=== PATIENT | female | born 1945 | race Caucasian/White ===

== ENCOUNTER 2016-11-10 07:15 | Day surgery (SDC) | payer OTHER ==
[2016-11-09 12:23] VITALS: BMI 38.0
[2016-11-10] MEDS ORDERED: PROPOFOL 20 ML ONE (09:08)
[2016-11-10] MEDS ORDERED: ceFAZolin SODIUM 1 GM VIAL ONE (09:09)
[2016-11-10] MEDS ORDERED: SODIUM CHLORIDE 0.9% P/F 10 ML VIAL IJ ONE (09:10)
[2016-11-10] MEDS ORDERED: LIDOCAINE HCL 2% 100 MG/5 ML DISP.SYRIN ONE (09:15)
[2016-11-10] MEDS ORDERED: GLYCOPYRROLATE 0.2 MG/1 ML VIAL ONE (09:35)
[2016-11-10] MEDS ORDERED: NEOSTIGMINE METHYLSULFATE 0.5 MG/ML - 10 ML MDV ONE (09:35)
--- NOTE | 2016-11-10 10:02 | HP ---
History & Physical Update - History History: No Change - Physical Physical: No Change - Assessment Assessment: No Change - Plan Plan: No Change
[2016-11-10] MEDS ORDERED: MIDAZOLAM HCL 2 MG/2 ML SINGLE DOSE VIAL ONE (10:32)
[2016-11-10] MEDS ORDERED: LIDOCAINE 1%/EPI 1:100000 (50 ML MULTI DOSE VIAL) ONE (10:34)
[2016-11-10] MEDS ORDERED: ceFAZolin SODIUM 1 GM VIAL IVPB ONE (10:42)
[2016-11-10] MEDS ORDERED: LIDOCAINE 2%/EPINEPHRINE 1:100000 (50 ML MD VIAL) PNB ONE ×2 (10:58)
[2016-11-10] MEDS ORDERED: oxyCODONE HCL 5 MG TABLET PO PRN (11:51)
[2016-11-10] MEDS ORDERED: ONDANSETRON 4 MG/2 ML VIAL IVPUSH PRN (11:51)
[2016-11-10 11:56] VITALS: TEMP 97.9
[2016-11-10] MEDS ORDERED: LACTATED RINGERS SOLUTION 1,000 ML IV SCH (12:00)
[2016-11-10 14:55] VITALS: BP 134/68; PULSE 86
--- NOTE | 2016-11-10 15:53 | OP ---
Operative Note - Note: Operative Date: 11/10/16 Pre-Operative Diagnosis: MULTIPLE BACK SEBACEOUS CYSTS Operation: EXCISION OF MULTIPLE BACK CYSTS Findings: 2 CM CYSTS OF THE BACK (2) Post-Operative Diagnosis: Same as Pre-op Surgeon: Honorio Turk Anesthesia: Local, MAC Operative Report Dictated: Yes
--- NOTE | 2016-11-11 10:03 | OP ---
DATE OF OPERATION: 11/10/2016 PROCEDURE: Excision of multiple back cysts (two). PREOPERATIVE DIAGNOSIS: Multiple back cysts (two). POSTOPERATIVE DIAGNOSIS: Multiple back cysts (two). SURGEON: Honorio Turk MD ANESTHESIA: Local with sedation. FINDINGS ON PROCEDURE: This is a 71-year-old female who presents with two slowly growing cystic lesions of the upper back, one on the right side and one on the left side at the area of the scapula. The right-sided cyst seems to be indurated and erythematous and was noted to be pruritic. The cyst on the left side was about 2 cm, not inflamed, with well-defined borders. So, patient was advised removal of the cyst and consent was obtained after discussing the risks, benefits, and alternatives of the procedure. DESCRIPTION OF PROCEDURE: Patient was brought to the operating room and placed in prone position. Intravenous sedation was given by anesthesia team. The operative sites were prepped and draped in the usual sterile fashion. The left upper back cyst was addressed first by making a 2-cm elliptical incision over the cyst incorporating the central sinus using scalpel blade No. 15. Further dissection using Metzenbaum scissors was done until the cyst together with ellipse of skin was completely excised. The wound was undermined about 0.5 cm on each side. The wound was closed with interrupted Vicryl 3-0 suture for the dermis and continuous Biosyn 4-0 suture for the subcuticular layer. The wound closure was reinforced with Steri-Strips and covered with sterile dressing. The right cyst was excised in the same manner by making 2.5-cm elliptical incision over the indurated cyst. The cyst as also removed together with ellipse of skin, and the wound was closed with interrupted Vicryl 3-0 suture for the dermis and continuous Biosyn 4-0 suture for the subcuticular layer. The wound closure was reinforced with Steri-Strips and also covered with pressure dressing. The patient was placed in supine position and transferred to the post-anesthesia care unit in satisfactory condition. ESTIMATED BLOOD LOSS: About 2 mL. WOUND CLASS: Clean. The patient received 1 g of Ancef prior to the start of the procedure. Frantz [id number]
--- NOTE | 2016-11-11 14:57 | PATH ---
Surgical Pathology Report Patient Name: EVAN MORALES [facility]. Rec. #: [id number] /Age/Gender: 1945 (Age: 71) / F Account: [id number] Location: [facility] Taken: 11/10/2016 Received: 11/10/2016 Reported: 11/11/2016 Physicians: Honorio Turk M.D. Specimen(s) Received SEBACEOUS CYST x2 Clinical History Back cyst x2 Final Diagnosis SEBACEOUS CYST x2, BACK, EXCISION: EPIDERMAL INCLUSION CYSTS x2. Electronically Signed Ron Martinez M.D. Gross Description Received in formalin labeled "sebaceous cysts" is a 1.4 x 1.1 x 0.7 cm portion of soft tissue which is surfaced by a 1.4 x 0.3 cm casarez, elliptical, unremarkable portion of skin. Sectioning reveals an intact cystic structure. Also received within the same container is a 1.0 x 0.5 x 0.4 cm casarez, disrupted cyst. [employer] sections are submitted in 2 cassettes as follows: 1-intact cyst; 2-disrupted cyst. /11/10/2016 [facility]
== END 2016-11-10 13:15 | disposition home or self-care (01) ==
LOC: JASU-SURG 07:15
PROVIDERS: ATTEND Surgery
PROC: 0HB6XZZ Excision of Back Skin, External Approach (ICD-10-PCS; principal; 2016-11-10 10:00)
DX: L72.3 Sebaceous cyst (principal)
CPT/HCPCS: 88304-TC; 94760

== ENCOUNTER 2017-12-20 11:58 | Inpatient (IN) | payer OTHER ==
--- NOTE | 2017-12-20 13:27 | PDOC ---
History of Present Illness - General Chief Complaint: Shortness of Breath Stated Complaint: SOB, CHEST CONGESTION Time Seen by Provider: 12/20/17 13:27 History Source: Patient - History of Present Illness Initial Comments: 12/20/17 14:07 72 year old female with PMH HTN, diabetes, tacyhcardia, chronic arthritis, anemia, 20-25 pack year smoking history, family history of early NE presents to ED today for 3 days of SOB associated with diaphoresis, nausea, vomiting, diarrhea, headache, lightheadedness, cough. Pt states she had one episode of chest pain yesterday 12/19/17 for 1-2 seconds, located to her left chest, described as "uncomfortable", non-radiating, self-resolving. Her lisonpril was recently decreased from 20 mg to 10 mg for hypotension. Pt is on Remicade infusions for chronic arthritis, last infusion x8 weeks ago. Pt states her father at 37 of an NE. Her two brothers also had MIs, one at 65 and the other in his fifties. Past History - Past Medical History Allergies/Adverse Reactions: Allergies Allergy/AdvReac Type Severity Reaction Status Date / Time codeine AdvReac Verified 12/20/17 12:09 Home Medications: Ambulatory Orders Aspirin [ASA -] 81 mg PO DAILY 05/18/16 Gabapentin [Neurontin -] 300 mg PO BID 05/18/16 Lisinopril [Prinivil] 20 mg PO DAILY 05/18/16 Metoprolol Succinate [Toprol Xl -] 50 mg PO HS 05/18/16 Metoprolol Succinate [Toprol Xl -] 100 mg PO AM 05/18/16 Nortriptyline HCl [Pamelor -] 20 mg PO HS 05/18/16 Simvastatin [Zocor -] 20 mg PO HS 05/18/16 Medical Marijuana [Medical Marijuana Oil] 1 inh IH BID 09/07/16 Cholecalciferol (Vitamin D3) [Vitamin D-400] 400 unit PO DAILY 11/09/16 Cyanocobalamin [Vitamin B12 -] 1,000 mcg PO DAILY 11/09/16 Methotrexate [Mexate -] 7.5 mg PO Q7D 11/09/16 Multivitamins [Tab-A-Vit -] 1 tab PO DAILY 11/09/16 [place]-3 Fatty Acids [Fish Oil] 3,400 mg PO DAILY 11/09/16 Sennosides/Docusate Sodium [Stool Softener-Laxative Tablet] 1 each PO DAILY 10/21 Acetaminophen [Tylenol -] 500 mg PO Q4H PRN #60 tablet 11/10/16 Infliximab [Remicade 100MG Vial] 100 mg IV ASDIR 12/20/17 Anemia: Yes Asthma: No Cancer: No Cardiac Disorders: No CVA: No COPD: No CHF: No Dementia: No Diabetes: Yes (on meds, with neuropathy) GI Disorders: No Disorders: No HTN: Yes Hypercholesterolemia: No Liver Disease: No Seizures: No Thyroid Disease: No Other medical history: RA - Surgical History Appendectomy: Yes Orthopedic Surgery: Yes (total knee replacement 2007; ) - Suicide/Smoking/Psychosocial Hx Smoking History: Former smoker Have you smoked in the past 12 months: Yes If you are a former smoker, when did you quit?: 30 years ago Information on smoking cessation initiated: No Hx Alcohol Use: Yes Drug/Substance Use Hx: ([facility]) Substance Use Type: Marijuana Hx Substance Use Treatment: No (MEDICAL MARIJUANA FOR FEET PAIN) Review of Systems - Review of Systems Able to Perform ROS?: Yes Comments:: 12/20/17 14:09 General: admits to chills, sweats, fever. denies generalized weakness. HEENT: denies sore throat, rhinorrhea, ear pain. Heart: admits to chest pain, lightheadedness. denies palpitations, syncope, lower extremity swelling. Respiratory: admits to shortness of breath, cough. denies sputum production, hematemesis. Abdomen: admits to nausea, vomiting, diarrhea. denies abdominal pain, constipation, blood in stool. : denies for dysuria, urinary frequency, hematuria. Musculoskeletal: admits to chronic joint pain. denies muscle pain, joint swelling. Neurological: admits to headache. denies dizziness, numbness, tingling. Skin: denies for rash, laceration, abrasion. *Physical Exam - Vital Signs Last Vital Signs Temp Pulse Resp BP Pulse Ox 99.5 F 110 H 20 105/75 94 L 12/20/17 12:05 12/20/17 12:05 12/20/17 12:05 12/20/17 12:05 12/20/17 12:05 - Physical Exam Comments: 12/20/17 14:51 General: diaphoretic. awake, alert and oriented X3. HEENT: head is normocephalic, atraumatic. EOMI. PERRLA. Neck: supple without lymphadenopathy Heart: tachycardic. regular rhythm. no murmurs, rubs or gallops. Lungs: clear to auscultation bilaterally. no crackles, rhonchi or wheezing. no stridor. Abdomen: soft, nontender. normal bowel sounds. no rebound, guarding, masses. Extremities: Peripheral pulses intact. No leg edema. Neurological: Alert. Oriented x3. CN 2-12 intact. 5/5 strength all extremities. Sensation intact all extremities. Heart Score/ECG Review - ECG Impressions Comment:: 12/20/17 14:13 Rate 104, normal rhythm, normal axis, no acute ST changes. ED Treatment Course - LABORATORY CBC & Chemistry Diagram: 12/20/17 14:27 12/20/17 14:27 Medical Decision Making - Medical Decision Making 12/20/17 15:13 Pt reassessed, states she had SOB while walking to the bathroom. She states after resting and recieving oxygen she is feeling better. 12/20/17 15:[address] Shaw, who will accept the patient. Dr. Shaw has requested that I order BNP, D-dimer, V/Q scan. Dr. Shaw has requested I call cardiology and pulmonoloy as consult. 12/20/17 16:[address] Martínez, who advises ordering LE venous ultrasound, Heparin, d- dimer, V/Q scan. 12/20/17 16:[address] Shaw, updated her on Dr. Martínez's requested orders. 12/20/17 16:18 Spoke with the patient about the decision to admit her. She agrees with the plan of care. 12/20/17 16:[address] Ferreira, who will accept the consult for the patient. *DC/Admit/Observation/Transfer Diagnosis at time of Disposition: Shortness of breath, Acute kidney failure - Discharge Dispostion Condition at time of disposition: Guarded Decision to Admit order: Yes - Referrals Referrals: Lisa Edgar MD [Primary Care Provider] - - Patient Instructions - Post Discharge Activity
--- NOTE | 2017-12-20 13:56 | PDOC ---
Attending Attestation - HPI HPI: 12/20/17 14:21 The patient is a 72 year old female with a past medical history of HTN, diabetes , tacyhcardia, chronic arthritis who presents to ED today for 3 days of SOB with associated with diaphoresis, nausea, vomiting, diarrhea, headache, lightheadedness, and cough. Pt states she had one episode of chest pain yesterday which lasted 1-2 seconds, located to her left chest, which resolved on its own. She reprots her lisonpril was recently decreased from 20 mg to 10 mg for hypotension. She reports her last echo was in November and normal. She states she had an endoscopy [address] Vela. Allergies: Codeine PCP: Dr. Lisa Quigley Cards: Dr. Nj - Medical Decision Making 12/20/17 14:22 Documentation prepared by Anika Rodriguez, acting as medical billing service for Martha Davis MD <Anika Rodriguez - Last Filed: 12/20/17 15:44> - Resident Resident Name: Shweta Enriquez - ED Attending Attestation I have performed the following: I have examined & evaluated the patient, The case was reviewed & discussed with the resident, I agree w/resident's findings & plan, Exceptions are as noted - Physicial Exam PE: 12/22/17 08:24 General: diaphoretic. awake, alert and oriented X3. HEENT: head is normocephalic, atraumatic. EOMI. PERRLA. Neck: supple without lymphadenopathy Heart: tachycardic. regular rhythm. no murmurs, rubs or gallops. Lungs: clear to auscultation bilaterally. no crackles, rhonchi or wheezing. no stridor. Abdomen: soft, nontender. normal bowel sounds. no rebound, guarding, masses. Extremities: Peripheral pulses intact. No leg edema. Neurological: Alert. Oriented x3. CN 2-12 intact. 5/5 strength all extremities. Sensation intact all extremities. - Medical Decision Making Laboratory Tests 12/20/17 12/20/17 12/20/17 14:27 14:27 14:37 WBC 5.4 Hgb 10.6 L Hct 31.6 L D Plt Count 299 D D-Dimer BUN 37 H Creatinine 2.1 H Creatine Kinase 61 Troponin I < 0.02 B-Natriuretic Peptide Ur Leukocyte Esterase 2+ H Urine WBC (Auto) 6 Urine RBC (Auto) None Stool Occult Blood 12/20/17 12/20/17 12/20/17 15:53 15:53 16:13 WBC Hgb Hct Plt Count D-Dimer 263 BUN Creatinine Creatine Kinase Troponin I B-Natriuretic Peptide 345.97 H Ur Leukocyte Esterase Urine WBC (Auto) Urine RBC (Auto) Stool Occult Blood Negative PT remains dyspneic on exertion CXR nml D dimer negative Heparin initially ordered but discontinued Admitted to Dr Shaw <Martha Davis - Last Filed: 12/22/17 08:26>
[2017-12-20] MEDS ORDERED: ASPIRIN 81 MG CHEWABLE TABLETS PO ONE (14:06)
[2017-12-20] MEDS ORDERED: ASPIRIN 325 MG TABLET ONE (14:13)
[2017-12-20 14:39] LABS: HEMATOCRIT 31.6 % (32.4-45.2); HEMOGLOBIN 10.6 GM/dL (10.7-15.3); MCH 33.4 pg (25.7-33.7); MCHC 33.5 g/dl (32.0-36.0); MEAN CELL VOLUME 99.6 fl (80-96); MEAN PLT VOLUME 8.6 fl (7.5-11.1); PLATELET COUNT 299 K/MM3 (134-434); RBC 3.18 M/mm3 (3.60-5.2); WHITE BLOOD COUNT 5.4 K/mm3 (4.0-10.0)
[2017-12-20 15:02] LABS: URINE APPEARANCE SLCLOUDY; URINE BILIRUBIN NEGATIVE (<2.0 mg/dL); URINE COLOR YELLOW; URINE GLUCOSE (UA) NEGATIVE (NEGATIVE); URINE KETONE NEGATIVE (NEGATIVE); URINE NITRITE NEGATIVE (NEGATIVE); URINE PROTEIN NEGATIVE (NEGATIVE); URINE UROBILINOGEN NEGATIVE mg/dL (0.2-1.0)
[2017-12-20 15:03] LABS: ALBUMIN 3.1 g/dl (3.4-5.0); ANION GAP 10 (8-16); BILIRUBIN,TOTAL 0.5 mg/dL (0.2-1.0); BLOOD UREA NITROGEN 37 mg/dL (7-18); CALCIUM 10.7 mg/dL (8.5-10.1); CHLORIDE 97 mmol/L (98-107); CO2 28 mmol/L (21-32); CREATININE 2.1 mg/dL (0.55-1.02); GLUCOSE,RANDOM 114 mg/dL (74-106); POTASSIUM 4.4 mmol/L (3.5-5.1); SGOT/AST 34 U/L (15-37); SGPT/ALT 39 U/L (12-78); SODIUM 135 mmol/L (136-145)
[2017-12-20 15:06] LABS: ALK PHOS 54 U/L (45-117)
[2017-12-20 15:07] LABS: URINE LEUK ESTERASE 2+ (NEGATIVE)
[2017-12-20 15:14] LABS: EPI CELLS RARE /HPF (FEW); URINE HYALINE CAST 90 /lpf; URINE MUCUS RARE; YEAST FEW
[2017-12-20] MEDS ORDERED: HEPARIN - 25,000 UNIT in SODIUM CHLORIDE 495 ML IV SCH (16:15)
[2017-12-20 16:20] LABS: ARTERIAL BLD GAS O2 SATURATION 98.9 % (90-98.9); ARTERIAL BLOOD GAS BASE EXCESS 2.8 meq/l (-2-2); ARTERIAL BLOOD GAS PCO2 32.9 mmHg (35-45)
[2017-12-20 16:21] LABS: ALLENS TEST POSITIVE
[2017-12-20] MEDS ORDERED: HEPARIN INFUSION - 25,000 UNITS/500 ML INFUS.BAG IVPB ONE (16:26)
[2017-12-20 16:39] LABS: INR 1.16 (0.82-1.09); PROTHROMBIN TIME (PATIENT) 13.1 SEC (9.7-13.0)
--- NOTE | 2017-12-20 17:25 | CON.CARD ---
Consult Consult Specialty:: Cardiology - History of Present Illness Chief Complaint: sob History of Present Illness: The patient is a 72 year old female with a past medical history of HTN, diabetes , tacyhcardia, chronic arthritis who presents to ED today for 3 days of SOB with associated with diaphoresis, nausea, vomiting, diarrhea, headache, lightheadedness, and cough. Pt states she had one episode of chest pain yesterday which lasted 1-2 seconds, located to her left chest, which resolved on its own. She reprots her lisonpril was recently decreased from 20 mg to 10 mg for hypotension. She reports her last echo was in November and normal. She states she had an endoscopy [address] Vela. Allergies: Codeine PCP: Dr. Lisa Quigley Cards: Dr. Nj - History Source History Provided By: Patient, Medical Record - Past Medical History Cardio/Vascular: Yes: HTN, Hyperlipdemia - Alcohol/Substance Use Hx Alcohol Use: Yes - Smoking History Smoking history: Former smoker Have you smoked in the past 12 months: Yes If you are a former smoker, when did you quit?: 30 years ago Home Medications - Allergies Allergies/Adverse Reactions: Allergies Allergy/AdvReac Type Severity Reaction Status Date / Time codeine AdvReac Verified 12/20/17 12:09 - Home Medications Home Medications: Ambulatory Orders Aspirin [ASA -] 81 mg PO DAILY 05/18/16 Gabapentin [Neurontin -] 300 mg PO BID 05/18/16 Lisinopril [Prinivil] 20 mg PO DAILY 05/18/16 Metoprolol Succinate [Toprol Xl -] 50 mg PO HS 05/18/16 Metoprolol Succinate [Toprol Xl -] 100 mg PO AM 05/18/16 Nortriptyline HCl [Pamelor -] 20 mg PO HS 05/18/16 Simvastatin [Zocor -] 20 mg PO HS 05/18/16 Medical Marijuana [Medical Marijuana Oil] 1 inh IH BID 09/07/16 Cholecalciferol (Vitamin D3) [Vitamin D-400] 400 unit PO DAILY 11/09/16 Cyanocobalamin [Vitamin B12 -] 1,000 mcg PO DAILY 11/09/16 Methotrexate [Mexate -] 7.5 mg PO Q7D 11/09/16 Multivitamins [Tab-A-Vit -] 1 tab PO DAILY 11/09/16 [place]-3 Fatty Acids [Fish Oil] 3,400 mg PO DAILY 11/09/16 Sennosides/Docusate Sodium [Stool Softener-Laxative Tablet] 1 each PO DAILY 10/21 Acetaminophen [Tylenol -] 500 mg PO Q4H PRN #60 tablet 11/10/16 Infliximab [Remicade 100MG Vial] 100 mg IV ASDIR 12/20/17 Family Disease History - Family Disease History Family Disease History: Heart Disease: Father (), Mother () Review of Systems - Review of Systems Constitutional: reports: No Symptoms Eyes: reports: No Symptoms HENT: reports: No Symptoms Neck: reports: No Symptoms Cardiovascular: reports: No Symptoms Respiratory: reports: SOB, SOB on Exertion Gastrointestinal: reports: No Symptoms Genitourinary: reports: No Symptoms Breasts: reports: No Symptoms Reported Musculoskeletal: reports: No Symptoms Integumentary: reports: No Symptoms Neurological: reports: No Symptoms Endocrine: reports: No Symptoms Hematology/Lymphatic: reports: No Symptoms Psychiatric: reports: No Symptoms Vital Signs: Vital Signs Temperature 98.3 F 12/20/17 16:35 Pulse Rate 106 H 12/20/17 16:35 Respiratory Rate 16 12/20/17 16:35 Blood Pressure 107/62 12/20/17 16:35 O2 Sat by Pulse Oximetry (%) 96 12/20/17 16:35 Constitutional: Yes: Well Nourished, No Distress, Calm Eyes: Yes: WNL, Conjunctiva Clear, EOM Intact HENT: Yes: WNL, Atraumatic, Normocephalic Neck: Yes: WNL, Supple, Trachea Midline Respiratory: Yes: Rhonchi Gastrointestinal: Yes: WNL, Normal Bowel Sounds Renal/: Yes: WNL Cardiovascular: Yes: WNL, Regular Rate and Rhythm Musculoskeletal: Yes: WNL Extremities: Yes: WNL Integumentary: Yes: WNL Neurological: Yes: WNL, Alert, Oriented ...Motor Strength: WNL Psychiatric: Yes: WNL, Alert, Oriented - Other Data Labs, Other Data: CBC, BMP 12/20/17 14:27 12/20/17 14:27 INR, PTT INR 1.16 (0.82-1.09) H 12/20/17 16:05 Troponin, BNP 12/20/17 12/20/17 14:27 15:53 Troponin I < 0.02 B-Natriuretic Peptide 345.97 H Troponin, BNP 12/20/17 12/20/17 14:27 15:53 Troponin I < 0.02 B-Natriuretic Peptide 345.97 H Imaging - Results Chest X-ray: Image Reviewed (wnl) EKG: Image Reviewed (jim vincent) Problem List - Problems (1) Acute kidney failure Code(s): N17.9 - ACUTE KIDNEY FAILURE, UNSPECIFIED (2) Shortness of breath Code(s): R06.02 - SHORTNESS OF BREATH (3) Sebaceous cyst Code(s): L72.3 - SEBACEOUS CYST (4) Carpal tunnel syndrome Code(s): G56.00 - CARPAL TUNNEL SYNDROME, UNSPECIFIED UPPER LIMB (5) Chronic pain Code(s): G89.29 - OTHER CHRONIC PAIN (6) Chronic renal insufficiency, stage III (moderate) Code(s): N18.3 - CHRONIC KIDNEY DISEASE, STAGE 3 (MODERATE) (7) Diabetes mellitus treated with oral medication Code(s): E11.9 - TYPE 2 DIABETES MELLITUS WITHOUT COMPLICATIONS (8) Diabetic neuropathy Code(s): E11.40 - TYPE 2 DIABETES MELLITUS WITH DIABETIC NEUROPATHY, UNSP (9) Dry eyes Code(s): H04.123 - DRY EYE SYNDROME OF BILATERAL LACRIMAL GLANDS (10) Glaucoma Code(s): H40.9 - UNSPECIFIED GLAUCOMA (11) Osteoarthritis Code(s): M19.90 - UNSPECIFIED OSTEOARTHRITIS, UNSPECIFIED SITE (12) PVD (peripheral vascular disease) with claudication Code(s): I73.9 - PERIPHERAL VASCULAR DISEASE, UNSPECIFIED (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
[2017-12-20 18:53] VITALS: BMI 33.4
[2017-12-20] MEDS ORDERED: ACETAMINOPHEN 325 MG TABLET (FP) PO PRN (19:16)
--- NOTE | 2017-12-20 19:19 | HP ---
Admitting History and Physical - Primary Care Physician PCP: Lorenzo Shaw - Admission History of Present Illness: 72 year old female with a past medical history of HTN, diabetes, tacyhcardia, chronic arthritis who presents to ED today for 3 days of SOB with associated with diaphoresis, nausea, vomiting, diarrhea, headache, lightheadedness, and cough. Pt states she had one episode of chest pain yesterday which lasted 1-2 seconds, located to her left chest, which resolved on its own. She reprots her lisonpril was recently decreased from 20 mg to 10 mg for hypotension. She reports her last echo was in November and normal. She states she had an endoscopy [address] Vela. - Past Medical History Cardiovascular: Yes: HTN Pulmonary: Yes: COPD ...: No Endocrine: Yes: Diabetes Mellitus - Advance Directives Advance Directives: Yes: Health Care Proxy - Smoking History Smoking history: Former smoker Have you smoked in the past 12 months: Yes If you are a former smoker, when did you quit?: 30 years ago - Alcohol/Substance Use Hx Alcohol Use: Yes Home Medications - Allergies Allergies/Adverse Reactions: Allergies Allergy/AdvReac Type Severity Reaction Status Date / Time codeine AdvReac Verified 12/20/17 12:09 - Home Medications Home Medications: Ambulatory Orders Aspirin [ASA -] 81 mg PO DAILY 05/18/16 Gabapentin [Neurontin -] 300 mg PO BID 05/18/16 Lisinopril [Prinivil] 20 mg PO DAILY 05/18/16 Metoprolol Succinate [Toprol XL -] 50 mg PO HS 05/18/16 Metoprolol Succinate [Toprol XL -] 100 mg PO AM 05/18/16 Nortriptyline HCl [Pamelor -] 20 mg PO HS 05/18/16 Simvastatin [Zocor -] 20 mg PO HS 05/18/16 Medical Marijuana [Medical Marijuana Oil] 1 inh IH BID 09/07/16 Cholecalciferol (Vitamin D3) [Vitamin D-400] 400 unit PO DAILY 11/09/16 Cyanocobalamin [Vitamin B12 -] 1,000 mcg PO DAILY 11/09/16 Methotrexate [Mexate -] 7.5 mg PO Q7D 11/09/16 Multivitamins [Multivit ([facility] Formulary)] 1 tab PO DAILY 11/09/16 [place]-3 Fatty Acids [Fish Oil] 3,400 mg PO DAILY 11/09/16 Sennosides/Docusate Sodium [Stool Softener-Laxative Tablet] 1 each PO DAILY 10/21 Acetaminophen [Tylenol .Extra-Strength -] 500 mg PO Q4H PRN #60 tablet 11/10/16 Infliximab [Remicade Infusion -] 100 mg IV ASDIR 12/20/17 predniSONE [Deltasone -] 40 mg PO DAILY #30 tablet 12/26/17 Family Disease History - Family Disease History Family Disease History: Heart Disease: Father (), Mother () Review of Systems - Review of Systems Cardiovascular: reports: Chest Pain Respiratory: reports: SOB Physical Examination Vital Signs: Vital Signs Temperature 98.3 F 12/20/17 16:35 Pulse Rate 106 H 12/20/17 16:35 Respiratory Rate 16 12/20/17 16:35 Blood Pressure 107/62 12/20/17 16:35 O2 Sat by Pulse Oximetry (%) 96 12/20/17 16:35 Constitutional: Yes: No Distress HENT: Yes: Atraumatic Neck: Yes: Supple Cardiovascular: Yes: Regular Rate and Rhythm Respiratory: Yes: Rhonchi Gastrointestinal: Yes: Normal Bowel Sounds Extremities: Yes: WNL Neurological: Yes: Alert, Oriented Labs: CBC, BMP 12/20/17 14:27 12/20/17 14:27 Problem List - Problems (1) HTN (hypertension) Assessment/Plan: on meds monitor Code(s): I10 - ESSENTIAL (PRIMARY) HYPERTENSION (2) Acute kidney failure Assessment/Plan: on hydration Code(s): N17.9 - ACUTE KIDNEY FAILURE, UNSPECIFIED (3) Shortness of breath Assessment/Plan: on meds stable steroids duo nebs pulmonary on board Code(s): R06.02 - SHORTNESS OF BREATH (4) Diabetes mellitus treated with oral medication Code(s): E11.9 - TYPE 2 DIABETES MELLITUS WITHOUT COMPLICATIONS (5) Diabetic neuropathy Code(s): E11.40 - TYPE 2 DIABETES MELLITUS WITH DIABETIC NEUROPATHY, UNSP (6) Rheumatoid arteritis Code(s): I00 - RHEUMATIC FEVER WITHOUT HEART INVOLVEMENT Assessment/Plan Laboratory Tests 12/20/17 12/20/17 12/20/17 14:21 14:27 14:27 WBC 5.4 RBC 3.18 L Hgb 10.6 L Hct 31.6 L D MCV 99.6 H MCH 33.4 D MCHC 33.5 RDW 16.0 H Plt Count 299 D MPV 8.6 PT with INR INR PTT (Actin FS) D-Dimer Anticoagulation Therapy Puncture Site ABG pH ABG pCO2 at Pt Temp ABG pO2 at Pt Temp ABG HCO3 ABG O2 Sat (Measured) ABG O2 Content ABG Base Excess Angelo Test O2 Delivery Device Oxygen Flow Rate Vent Mode Vent Rate Mechanical Rate Pressure Support Vent Sodium 135 L Potassium 4.4 Chloride 97 L Carbon Dioxide 28 Anion Gap 10 BUN 37 H Creatinine 2.1 H Creat Clearance w eGFR 23.02 Random Glucose 114 H Lactic Acid 1.5 Calcium 10.7 H Total Bilirubin 0.5 AST 34 ALT 39 Alkaline Phosphatase 54 Creatine Kinase 61 Troponin I < 0.02 B-Natriuretic Peptide Total Protein 7.0 Albumin 3.1 L Urine Color Urine Appearance Urine pH Ur Specific [place] Urine Protein Urine Glucose (UA) Urine Ketones Urine Blood Urine Nitrite Urine Bilirubin Urine Urobilinogen Ur Leukocyte Esterase Urine WBC (Auto) Urine RBC (Auto) Ur Epithelial Cells Hyaline Casts Urine Mucus Urine Yeast Stool Occult Blood 12/20/17 12/20/17 12/20/17 14:37 15:53 15:53 WBC RBC Hgb Hct MCV MCH MCHC RDW Plt Count MPV PT with INR INR PTT (Actin FS) D-Dimer 263 Anticoagulation Therapy Puncture Site ABG pH ABG pCO2 at Pt Temp ABG pO2 at Pt Temp ABG HCO3 ABG O2 Sat (Measured) ABG O2 Content ABG Base Excess Angelo Test O2 Delivery Device Oxygen Flow Rate Vent Mode Vent Rate Mechanical Rate Pressure Support Vent Sodium Potassium Chloride Carbon Dioxide Anion Gap BUN Creatinine Creat Clearance w eGFR Random Glucose Lactic Acid Calcium Total Bilirubin AST ALT Alkaline Phosphatase Creatine Kinase Troponin I B-Natriuretic Peptide 345.97 H Total Protein Albumin Urine Color Yellow Urine Appearance Slcloudy Urine pH 5.0 Ur Specific [place] 1.012 Urine Protein Negative Urine Glucose (UA) Negative Urine Ketones Negative Urine Blood Negative Urine Nitrite Negative Urine Bilirubin Negative Urine Urobilinogen Negative Ur Leukocyte Esterase 2+ H Urine WBC (Auto) 6 Urine RBC (Auto) None Ur Epithelial Cells Rare Hyaline Casts 90 Urine Mucus Rare Urine Yeast Few Stool Occult Blood 12/20/17 12/20/17 12/20/17 16:05 16:05 16:05 WBC RBC Hgb Hct MCV MCH MCHC RDW Plt Count MPV PT with INR 13.10 H INR 1.16 H PTT (Actin FS) 29.9 D-Dimer Anticoagulation Therapy No Result Required. Puncture Site Left radial ABG pH 7.50 H ABG pCO2 at Pt Temp 32.9 L ABG pO2 at Pt Temp 135.0 H ABG HCO3 25.4 ABG O2 Sat (Measured) 98.9 ABG O2 Content 13.6 L ABG Base Excess 2.8 H Angelo Test Positive O2 Delivery Device No Result Required. Oxygen Flow Rate No Result Required. Vent Mode No Result Required. Vent Rate No Result Required. Mechanical Rate No Result Required. Pressure Support Vent No Result Required. Sodium Potassium Chloride Carbon Dioxide Anion Gap BUN Creatinine Creat Clearance w eGFR Random Glucose Lactic Acid Calcium Total Bilirubin AST ALT Alkaline Phosphatase Creatine Kinase Troponin I B-Natriuretic Peptide Total Protein Albumin Urine Color Urine Appearance Urine pH Ur Specific [place] Urine Protein Urine Glucose (UA) Urine Ketones Urine Blood Urine Nitrite Urine Bilirubin Urine Urobilinogen Ur Leukocyte Esterase Urine WBC (Auto) Urine RBC (Auto) Ur Epithelial Cells Hyaline Casts Urine Mucus Urine Yeast Stool Occult Blood 12/20/17 16:13 WBC RBC Hgb Hct MCV MCH MCHC RDW Plt Count MPV PT with INR INR PTT (Actin FS) D-Dimer Anticoagulation Therapy Puncture Site ABG pH ABG pCO2 at Pt Temp ABG pO2 at Pt Temp ABG HCO3 ABG O2 Sat (Measured) ABG O2 Content ABG Base Excess Angelo Test O2 Delivery Device Oxygen Flow Rate Vent Mode Vent Rate Mechanical Rate Pressure Support Vent Sodium Potassium Chloride Carbon Dioxide Anion Gap BUN Creatinine Creat Clearance w eGFR Random Glucose Lactic Acid Calcium Total Bilirubin AST ALT Alkaline Phosphatase Creatine Kinase Troponin I B-Natriuretic Peptide Total Protein Albumin Urine Color Urine Appearance Urine pH Ur Specific [place] Urine Protein Urine Glucose (UA) Urine Ketones Urine Blood Urine Nitrite Urine Bilirubin Urine Urobilinogen Ur Leukocyte Esterase Urine WBC (Auto) Urine RBC (Auto) Ur Epithelial Cells Hyaline Casts Urine Mucus Urine Yeast Stool Occult Blood Negative Active Medications Generic Name Dose Route Start Last Admin Trade Name Freq PRN Reason Stop Dose Admin Acetaminophen 650 mg 12/20/17 19:16 Tylenol - PO Q6H PRN FEVER Albuterol/Ipratropium 1 amp 12/20/17 19:17 Duoneb - NEB Q4H PRN SHORTNESS OF BREATH Aspirin 81 mg 12/21/17 10:00 Asa - PO DAILY MARLINE Gabapentin 300 mg 12/20/17 22:00 Neurontin - PO BID [facility]LINE Sodium Chloride 1,000 mls @ 75 mls/hr 12/20/17 19:30 Normal Saline - IV ASDIR [facility]LINE Lisinopril 20 mg 12/21/17 10:00 Prinivil PO DAILY [facility] Methotrexate 7.5 mg 12/20/17 19:15 Mexate - PO Q7D [facility]LINE Metoprolol Succinate 50 mg 12/20/17 22:00 Toprol Xl - PO HS MARLINE Metoprolol Succinate 100 mg 12/21/17 07:00 Toprol Xl - PO AM MARLINE Non-Formulary Medication 20 mg 12/20/17 22:00 Simvastatin PO HS [facility]LINE Nortriptyline HCl 20 mg 12/20/17 22:00 Pamelor - PO HS MARLINE Senna/Docusate Sodium 1 tablet 12/21/17 10:00 Pericolace - PO DAILY [facility]
[2017-12-20] MEDS: SODIUM CHLORIDE 1,000 ML IV SCH (20:02)
[2017-12-20] MEDS: NORTRIPTYLINE HCL 10 MG CAPSULE PO SCH (21:43)
[2017-12-20] MEDS: GABAPENTIN 300 MG CAPSULE (FP) PO SCH (21:44)
[2017-12-20] MEDS: ATORVASTATIN CA 10 MG TABLET (FP) PO SCH (21:45)
[2017-12-21 07:26] LABS: BASO % 0.9 % (0-2.0); EOS % 2.1 % (0-4.5); HEMATOCRIT 26.4 % (32.4-45.2); LYMPH % 18.3 % (8-40); MCH 34.1 pg (25.7-33.7); MCHC 34.2 g/dl (32.0-36.0); MEAN CELL VOLUME 99.8 fl (80-96); MEAN PLT VOLUME 8.6 fl (7.5-11.1); MONO % 7.4 % (3.8-10.2); NEUT % 71.3 % (42.8-82.8); PLATELET COUNT 213 K/MM3 (134-434); RBC 2.64 M/mm3 (3.60-5.2); RDW 15.5 % (11.6-15.6)
[2017-12-21 07:33] LABS: ALBUMIN 2.7 g/dl (3.4-5.0); ANION GAP 7 (8-16); BILIRUBIN,TOTAL 0.4 mg/dL (0.2-1.0); BLOOD UREA NITROGEN 33 mg/dL (7-18); CHLORIDE 100 mmol/L (98-107); CO2 30 mmol/L (21-32); CREATININE 1.7 mg/dL (0.55-1.02); GLUCOSE,RANDOM 105 mg/dL (74-106); POTASSIUM 4.2 mmol/L (3.5-5.1); SGOT/AST 23 U/L (15-37); SGPT/ALT 31 U/L (12-78); SODIUM 137 mmol/L (136-145); TOT PROT 5.8 g/dl (6.4-8.2)
[2017-12-21 07:34] LABS: ALK PHOS 40 U/L (45-117)
[2017-12-21 09:12] LABS: MACROCYTOSIS 1+; PLATELET ESTIMATE NORMAL
[2017-12-21] MEDS: ASPIRIN 81 MG CHEWABLE TABLETS PO SCH (09:56)
[2017-12-21] MEDS: SENNOSIDES/DOCUSATE COMBO (SENNA PLUS) TABLET (UD) PO SCH (09:56)
[2017-12-21] MEDS: GABAPENTIN 300 MG CAPSULE (FP) PO SCH ×2 (09:56→21:43)
[2017-12-21] MEDS ORDERED: LISINOPRIL 20 MG TABLET (FP) PO SCH (10:00)
--- NOTE | 2017-12-21 11:26 | EKG ---
Test Reason : Blood Pressure : / mmHG Vent. Rate : 104 BPM Atrial Rate : 104 BPM P-R Int : 150 ms QRS Dur : 064 ms QT Int : 328 ms P-R-T Axes : 048 005 050 degrees QTc Int : 431 ms SINUS TACHYCARDIA OTHERWISE NORMAL ECG Confirmed by MD ANTWAN, LAURA ([id number]) on 12/21/2017 11:26:14 AM Referred By: Confirmed By:LAURA MONCADA MD
--- NOTE | 2017-12-21 11:49 | PN ---
Progress Note (short form) - Note Progress Note: PULMONARY CONSULTATION DICTATED 12/21/16 IMP ACUTE HYPOXEMIC RESPIRATORY FAILURE DYSPNEA ? ETIOLOGY ? MEDS REMICADE, ? ASTHMA EXACERBATION,R/O CARDIAC,?PE ALTHOUGH UNLIKELY IN VIEW OF NORMAL D-DIMER AND NORMAL DUPLEX LOWER EXTREMITIES ACUTE KIDNEY INJURY HTN RA H/O ASTHMA PLAN IV STEROIDS INHALED BRONCHODILATORS O2 CHEST CT ECHO CARDIOLOGY EVALUATION DR PAREDES Problem List - Problems (1) Acute hypoxemic respiratory failure Code(s): J96.01 - ACUTE RESPIRATORY FAILURE WITH HYPOXIA (2) Acute kidney failure Code(s): N17.9 - ACUTE KIDNEY FAILURE, UNSPECIFIED (3) HTN (hypertension) Code(s): I10 - ESSENTIAL (PRIMARY) HYPERTENSION (4) Shortness of breath Code(s): R06.02 - SHORTNESS OF BREATH (5) Diabetes mellitus treated with oral medication Code(s): E11.9 - TYPE 2 DIABETES MELLITUS WITHOUT COMPLICATIONS (6) Rheumatoid arthritis Code(s): M06.9 - RHEUMATOID ARTHRITIS, UNSPECIFIED
[2017-12-21] MEDS: methylPREDNISolone NA SUCC 40 MG/1 ML VIAL IVPUSH SCH ×3 (12:05→21:43)
[2017-12-21] MEDS: ALBUTEROL SO4 2.5/IPRATROPIUM 0.5 INH SOL 3 ML VIAL.NEB. NEB SCH ×3 (12:10→19:17)
--- NOTE | 2017-12-21 12:38 | CONS ---
DATE OF CONSULTATION: 12/21/2017 REFERRING PHYSICIAN: Lorenzo Shaw MD HISTORY OF PRESENT ILLNESS: The patient is a 72-year-old white female with a past medical history of hypertension, diabetes, tachycardia, history of chronic arthritis currently maintained on Remicade,asthma admitted to [facility] with 8-week history of progressive shortness of breath and dyspnea on exertion. Patient states that since starting Remicade approximately 8 weeks ago, she started noticing increasing shortness of breath predominantly with exertion. Three days prior to this admission, she started developing increasing shortness of breath wiyh minimal exertion. She also complained of nausea, vomiting,diahoresis and cough. She denied any history of hemoptysis. Apparently, the day prior to admission, she had 1-2-second history of chest pain which subsequently resolved spontaneously. She presented to the emergency room with the above. She had a chest x-ray which showed no evidence of pulmonary infiltrates or effusions. She was admitted to telemetry for further management. Patient denies any history of DVT or PE in the past. She has a remote history of smoking. There is no history of occupational exposure to chemical fumes. Patient in the emergency room underwent a duplex to the lower extremities, which was within normal limits. D-dimer was also within normal limits at 263. PAST MEDICAL HISTORY: Again includes rheumatoid arthritis, hypertension, diabetes, tachycardia. REVIEW OF SYSTEMS: Positive for shortness of breath. Positive for cough. Positive for congestion. No fever, no chills, no chest pain, no palpitations. Positive for nausea and vomiting x1 and one episode diaphoresis. CURRENT MEDICATIONS: Include Prinivil, Tylenol, Neurontin, Pamelor, Mexate, Duo -Neb, Toprol, Leidy-Colace, normal saline, Lipitor, and aspirin. PHYSICAL EXAMINATION: General: The patient is a well-developed, well-nourished female, awake, alert. She is comfortable, in no acute distress. Vital signs: She is currently afebrile, heart rate is 104, blood pressure 92/55 , respiratory rate 18, O2 saturation is 96% on room air. HEENT: Head is normocephalic atraumatic. Neck: Supple. Heart: Regular, S1, S2. Chest: Scattered bilateral rhonchi and wheezes. Abdomen: Soft. Bowel sounds positive. Extremities: No cyanosis or edema. LABORATORIES: D-dimer 263. INR 1.16. WBC is 5, hemoglobin 9, hematocrit 26.4, platelet count of 213,000. Blood gas an unknown quantity of oxygen, 7.50, pCO2 of 32, pO2 of 135, bicarbonate of 25, and saturation 98. BNP is 345. Chemistries: BUN 33, creatinine 1.7. Chest x-ray revealed no infiltrates and no effusions. IMPRESSION: 1. Dyspnea, etiology to be determined. 1. Possible side effect from Remicade. 2. Mild obstructive airway disease,Asthma. Wheezing, rhonchi, on chest exam. 3. Mild fluid overload. 4. Possible underlying interstitial lung disease. 5. Less likely pulmonary emboli in view of normal D-dimer and normal duplex. 2. Anemia. 3. Hypertension. 4. Acute on chronic kidney disease. PLAN: Short course of IV steroids, supplemental O2, CT of the chest, inhaled bronchodilators, obtain echocardiogram, monitor H and H, monitor renal function. TAO PAREDES M.D. [id number] MTDD
--- NOTE | 2017-12-21 14:18 | PN ---
Progress Note, Physician - Current Medication List Current Medications: Active Medications Acetaminophen (Tylenol -) 650 mg PO Q6H PRN PRN Reason: FEVER Albuterol/Ipratropium (Duoneb -) 1 amp NEB Q4H PRN PRN Reason: SHORTNESS OF BREATH Albuterol/Ipratropium (Duoneb -) 1 amp NEB RQID [facility] Last Admin: 12/21/17 12:10 Dose: 1 amp Aspirin (Asa -) 81 mg PO DAILY [facility] Last Admin: 12/21/17 09:56 Dose: 81 mg Atorvastatin Calcium (Lipitor -) 10 mg PO HS [facility] Last Admin: 12/20/17 21:45 Dose: 10 mg Gabapentin (Neurontin -) 300 mg PO BID [facility] Last Admin: 12/21/17 09:56 Dose: 300 mg Sodium Chloride (Normal Saline -) 1,000 mls @ 75 mls/hr IV ASDIR [facility] Last Admin: 12/20/17 20:02 Dose: 75 mls/hr Methotrexate (Mexate -) 7.5 mg PO Th@1000 [facility] Methylprednisolone Sodium Succinate (Solu-Medrol -) 40 mg IVPUSH Q6H-IV [facility] Last Admin: 12/21/17 12:05 Dose: 40 mg Metoprolol Succinate (Toprol Xl -) 50 mg PO HS [facility] Last Admin: 12/20/17 21:44 Dose: 50 mg Metoprolol Succinate (Toprol Xl -) 100 mg PO AM [facility] Last Admin: 12/21/17 06:48 Dose: 100 mg Nortriptyline HCl (Pamelor -) 20 mg PO [facility] Last Admin: 12/20/17 21:43 Dose: 20 mg Senna/Docusate Sodium (Pericolace -) 1 tablet PO DAILY [facility] Last Admin: 12/21/17 09:56 Dose: 1 tablet - Objective Vital Signs: Vital Signs Temperature 98.8 F 12/21/17 06:00 Pulse Rate 104 H 12/21/17 06:00 Respiratory Rate 18 12/21/17 09:00 Blood Pressure 92/55 12/21/17 06:00 O2 Sat by Pulse Oximetry (%) 96 12/21/17 09:00 Constitutional: Yes: No Distress HENT: Yes: Atraumatic Neck: Yes: Supple Cardiovascular: Yes: Regular Rate and Rhythm Respiratory: Yes: Rhonchi Gastrointestinal: Yes: Normal Bowel Sounds Extremities: Yes: WNL Neurological: Yes: Alert, Oriented Labs: CBC, BMP 12/21/17 05:50 12/21/17 05:50 INR, PTT INR 1.16 (0.82-1.09) H 12/20/17 16:05 Problem List - Problems (1) HTN (hypertension) Assessment/Plan: on meds monitor Code(s): I10 - ESSENTIAL (PRIMARY) HYPERTENSION (2) Acute kidney failure Assessment/Plan: improving Code(s): N17.9 - ACUTE KIDNEY FAILURE, UNSPECIFIED (3) Shortness of breath Assessment/Plan: on meds stable steroids Code(s): R06.02 - SHORTNESS OF BREATH (4) Diabetes mellitus treated with oral medication Code(s): E11.9 - TYPE 2 DIABETES MELLITUS WITHOUT COMPLICATIONS (5) Diabetic neuropathy Code(s): E11.40 - TYPE 2 DIABETES MELLITUS WITH DIABETIC NEUROPATHY, UNSP (6) Rheumatoid arteritis Code(s): I00 - RHEUMATIC FEVER WITHOUT HEART INVOLVEMENT
--- NOTE | 2017-12-21 15:35 | PN ---
Progress Note, Physician Chief Complaint: PT A&Ox3; no chest pain or dyspnea. History of Present Illness: 72 year old white female with PMH HTN, diabetes, tachycardia, chronic arthritis (requiring methotrexate), anemia, 20-25 pack year smoking history (quit years ago, aortic stenosis, diastolic CHF, and family history of early CT, presents to ED today for 3 days of SOB associated with diaphoresis, nausea, vomiting, diarrhea, headache, lightheadedness, cough. Pt states she had one episode of chest pain yesterday 12/19/17 for 1-2 seconds, located to her left chest, described as "uncomfortable", non-radiating, self-resolving. Her lisonpril was recently decreased from 20 mg to 10 mg for hypotension. Pt is on Remicade infusions for chronic arthritis, last infusion x8 weeks ago. Pt states her father at [address] Her two brothers also had MIs, one at 65 and the other in his fifties. Pt had stress MIBI 06/2016: no myocardia ischemia; Normal LVEF; poor exercise functional capacity (walked 3 minutes using Mookie protocol; test stopped due to AF with RVR, fatigue). - Current Medication List Current Medications: Active Medications Acetaminophen (Tylenol -) 650 mg PO Q6H PRN PRN Reason: FEVER Albuterol/Ipratropium (Duoneb -) 1 amp NEB Q4H PRN PRN Reason: SHORTNESS OF BREATH Albuterol/Ipratropium (Duoneb -) 1 amp NEB RQID [facility] Last Admin: 12/21/17 12:10 Dose: 1 amp Aspirin (Asa -) 81 mg PO DAILY [facility] Last Admin: 12/21/17 09:56 Dose: 81 mg Atorvastatin Calcium (Lipitor -) 10 mg PO HS [facility] Last Admin: 12/20/17 21:45 Dose: 10 mg Gabapentin (Neurontin -) 300 mg PO BID [facility] Last Admin: 12/21/17 09:56 Dose: 300 mg Sodium Chloride (Normal Saline -) 1,000 mls @ 75 mls/hr IV ASDIR [facility] Last Admin: 12/20/17 20:02 Dose: 75 mls/hr Methotrexate (Mexate -) 7.5 mg PO Th@1000 [facility] Methylprednisolone Sodium Succinate (Solu-Medrol -) 40 mg IVPUSH Q6H-IV [facility] Last Admin: 12/21/17 12:05 Dose: 40 mg Metoprolol Succinate (Toprol Xl -) 50 mg PO HS [facility] Last Admin: 12/20/17 21:44 Dose: 50 mg Metoprolol Succinate (Toprol Xl -) 100 mg PO AM [facility] Last Admin: 12/21/17 06:48 Dose: 100 mg Nortriptyline HCl (Pamelor -) 20 mg PO HS [facility] Last Admin: 12/20/17 21:43 Dose: 20 mg Senna/Docusate Sodium (Pericolace -) 1 tablet PO DAILY [facility] Last Admin: 12/21/17 09:56 Dose: 1 tablet - Objective Vital Signs: Vital Signs Temperature 98.5 F 12/21/17 15:00 Pulse Rate 107 H 12/21/17 15:00 Respiratory Rate 18 12/21/17 15:00 Blood Pressure 103/64 12/21/17 15:00 O2 Sat by Pulse Oximetry (%) 96 12/21/17 09:00 Constitutional: Yes: Calm Eyes: Yes: WNL HENT: Yes: WNL Neck: Yes: WNL Cardiovascular: Yes: Tachycardia, S1, S2 Respiratory: Yes: Diminished Gastrointestinal: Yes: Soft ...Rectal Exam: Yes: Deferred Genitourinary: No: Anuria Breast(s): Yes: WNL Musculoskeletal: Yes: Muscle Weakness Extremities: Yes: Cool Edema: No Peripheral Pulses WNL: No Peripheral Pulses: Left Doralis Pedis: 1+, Right Dorsalis Pedis: 1+ Integumentary: Yes: WNL Neurological: Yes: Alert, Oriented, Weakness Psychiatric: Yes: Alert, Oriented Labs: CBC, BMP 12/21/17 05:50 12/21/17 05:50 INR, PTT INR 1.16 (0.82-1.09) H 12/20/17 16:05 Abnormal Lab Results 12/23/17 12/23/17 05:30 05:30 WBC 13.3 H RBC 2.49 L Hgb 8.6 L Hct 25.3 L MCV 101.8 H MCH 34.4 H RDW 16.2 H Neutrophils % (Manual) 85.9 H D BUN 31 H Creatinine 1.1 H Random Glucose 171 H Total Protein 5.5 L Albumin 2.5 L - ....Imaging Cat Scan: Image Reviewed (mild chronic changes; no acute pathology) Problem List - Problems (1) Acute hypoxemic respiratory failure Code(s): J96.01 - ACUTE RESPIRATORY FAILURE WITH HYPOXIA (2) Acute kidney failure Assessment/Plan: hydrate; f/u BUn/Cr, Is and Os. Code(s): N17.9 - ACUTE KIDNEY FAILURE, UNSPECIFIED (3) HTN (hypertension) Code(s): I10 - ESSENTIAL (PRIMARY) HYPERTENSION (4) Rheumatoid arthritis Code(s): M06.9 - RHEUMATOID ARTHRITIS, UNSPECIFIED (5) Diabetes mellitus treated with oral medication Code(s): E11.9 - TYPE 2 DIABETES MELLITUS WITHOUT COMPLICATIONS (6) Osteoarthritis Code(s): M19.90 - UNSPECIFIED OSTEOARTHRITIS, UNSPECIFIED SITE (7) Hyperlipidemia Assessment/Plan: statin; f/u lipid profile, TSH. Code(s): E78.5 - HYPERLIPIDEMIA, UNSPECIFIED
[2017-12-21] MEDS: ATORVASTATIN CA 10 MG TABLET (FP) PO SCH (21:43)
[2017-12-21] MEDS: SODIUM CHLORIDE 1,000 ML IV SCH (21:44)
[2017-12-21] MEDS ORDERED: PT OWN MED DRAWER 7, Y5N ONE (21:48)
[2017-12-21] MEDS: NORTRIPTYLINE HCL 10 MG CAPSULE PO SCH (21:50)
[2017-12-22] MEDS: methylPREDNISolone NA SUCC 40 MG/1 ML VIAL IVPUSH SCH ×4 (03:33→21:26)
[2017-12-22] MEDS: ALBUTEROL SO4 2.5/IPRATROPIUM 0.5 INH SOL 3 ML VIAL.NEB. NEB SCH ×4 (08:42→20:00)
[2017-12-22] MEDS: GABAPENTIN 300 MG CAPSULE (FP) PO SCH ×2 (09:41→21:26)
[2017-12-22] MEDS: ASPIRIN 81 MG CHEWABLE TABLETS PO SCH (09:42)
[2017-12-22] MEDS: SENNOSIDES/DOCUSATE COMBO (SENNA PLUS) TABLET (UD) PO SCH (09:43)
--- NOTE | 2017-12-22 10:31 | PN ---
Progress Note, Physician History of Present Illness: PULMONARY ALERT ,FEELING BETTER,DYSPNEA IMPROVING. V/Q LOW PROBABILITY FOR PE. CHEST CT CHRONIC CHANGES,NO ACUTE PATHOLOGY - Current Medication List Current Medications: Active Medications Acetaminophen (Tylenol -) 650 mg PO Q6H PRN PRN Reason: FEVER Albuterol/Ipratropium (Duoneb -) 1 amp NEB Q4H PRN PRN Reason: SHORTNESS OF BREATH Albuterol/Ipratropium (Duoneb -) 1 amp NEB RQID [facility] Last Admin: 12/22/17 08:42 Dose: 1 amp Aspirin (Asa -) 81 mg PO DAILY [facility] Last Admin: 12/22/17 09:42 Dose: 81 mg Atorvastatin Calcium (Lipitor -) 10 mg PO HS [facility] Last Admin: 12/21/17 21:43 Dose: 10 mg Gabapentin (Neurontin -) 300 mg PO BID [facility] Last Admin: 12/22/17 09:41 Dose: 300 mg Sodium Chloride (Normal Saline -) 1,000 mls @ 75 mls/hr IV ASDIR [facility] Last Admin: 12/21/17 21:44 Dose: 75 mls/hr Methotrexate (Mexate -) 7.5 mg PO Th@1000 [facility] Methylprednisolone Sodium Succinate (Solu-Medrol -) 40 mg IVPUSH Q6H-IV [facility] Last Admin: 12/22/17 09:41 Dose: 40 mg Metoprolol Succinate (Toprol Xl -) 50 mg PO HS [facility] Last Admin: 12/21/17 21:43 Dose: 50 mg Metoprolol Succinate (Toprol Xl -) 100 mg PO AM [facility] Last Admin: 12/22/17 06:19 Dose: 100 mg Nortriptyline HCl (Pamelor -) 20 mg PO HS [facility] Last Admin: 12/21/17 21:50 Dose: 20 mg Senna/Docusate Sodium (Pericolace -) 1 tablet PO DAILY [facility] Last Admin: 12/22/17 09:43 Dose: 1 tablet - Objective Vital Signs: Vital Signs Temperature 97.5 F L 12/22/17 06:00 Pulse Rate 87 12/22/17 06:00 Respiratory Rate 18 12/22/17 06:00 Blood Pressure 100/66 12/22/17 06:00 O2 Sat by Pulse Oximetry (%) 96 12/21/17 21:00 Constitutional: Yes: Well Nourished, Calm Eyes: Yes: WNL HENT: Yes: WNL Neck: Yes: WNL Cardiovascular: Yes: Regular Rate and Rhythm, S1, S2 Respiratory: Yes: Wheezes (FEW SCATTERED WHEEZES,FEW CRACKLES) Gastrointestinal: Yes: Normal Bowel Sounds, Soft Extremities: Yes: WNL Edema: No Labs: CBC, BMP Problem List - Problems (1) Acute hypoxemic respiratory failure Code(s): J96.01 - ACUTE RESPIRATORY FAILURE WITH HYPOXIA (2) Acute kidney failure Code(s): N17.9 - ACUTE KIDNEY FAILURE, UNSPECIFIED (3) HTN (hypertension) Code(s): I10 - ESSENTIAL (PRIMARY) HYPERTENSION (4) Shortness of breath Code(s): R06.02 - SHORTNESS OF BREATH (5) Diabetes mellitus treated with oral medication Code(s): E11.9 - TYPE 2 DIABETES MELLITUS WITHOUT COMPLICATIONS (6) Rheumatoid arthritis Code(s): M06.9 - RHEUMATOID ARTHRITIS, UNSPECIFIED Assessment/Plan IMP ACUTE HYPOXEMIC RESPIRATORY FAILURE DYSPNEA ? ETIOLOGY ? MEDS REMICADE, ? OBSTRUCTIVE AIRWAY DISEASE,R/O CARDIAC,?PE ALTHOUGH UNLIKELY IN VIEW OF NORMAL D-DIMER AND NORMAL DUPLEX LOWER EXTREMITIES ACUTE KIDNEY INJURY HTN RA H/O ASTHMA ANEMIA PLAN IV STEROIDS SAME DOSE INHALED BRONCHODILATORS O2 MONITOR H+H MONITOR LYTES,RENAL FUNCTION DR PAREDES Problem List - Problems (1) Acute hypoxemic respiratory failure Code(s): J96.01 - ACUTE RESPIRATORY FAILURE WITH HYPOXIA (2) Acute kidney failure Code(s): N17.9 - ACUTE KIDNEY FAILURE, UNSPECIFIED (3) HTN (hypertension) Code(s): I10 - ESSENTIAL (PRIMARY) HYPERTENSION (4) Shortness of breath Code(s): R06.02 - SHORTNESS OF BREATH (5) Diabetes mellitus treated with oral medication Code(s): E11.9 - TYPE 2 DIABETES MELLITUS WITHOUT COMPLICATIONS (6) Rheumatoid arthritis Code(s): M06.9 - RHEUMATOID ARTHRITIS, UNSPECIFIED
--- NOTE | 2017-12-22 11:22 | PN ---
Progress Note, Physician History of Present Illness: The patient is a 72 year old female with a past medical history of HTN, diabetes , tacyhcardia, chronic arthritis who presents to ED today for 3 days of SOB with associated with diaphoresis, nausea, vomiting, diarrhea, headache, lightheadedness, and cough. Pt states she had one episode of chest pain yesterday which lasted 1-2 seconds, located to her left chest, which resolved on its own. She reprots her lisonpril was recently decreased from 20 mg to 10 mg for hypotension. She reports her last echo was in November and normal. She states she had an endoscopy [address] Vela. Allergies: Codeine PCP: Dr. Lisa Quigley Cards: Dr. Nj - Current Medication List Current Medications: Active Medications Acetaminophen (Tylenol -) 650 mg PO Q6H PRN PRN Reason: FEVER Albuterol/Ipratropium (Duoneb -) 1 amp NEB Q4H PRN PRN Reason: SHORTNESS OF BREATH Albuterol/Ipratropium (Duoneb -) 1 amp NEB RQID [facility] Last Admin: 12/22/17 08:42 Dose: 1 amp Aspirin (Asa -) 81 mg PO DAILY [facility] Last Admin: 12/22/17 09:42 Dose: 81 mg Atorvastatin Calcium (Lipitor -) 10 mg PO HS [facility] Last Admin: 12/21/17 21:43 Dose: 10 mg Gabapentin (Neurontin -) 300 mg PO BID [facility] Last Admin: 12/22/17 09:41 Dose: 300 mg Sodium Chloride (Normal Saline -) 1,000 mls @ 75 mls/hr IV ASDIR [facility] Last Admin: 12/21/17 21:44 Dose: 75 mls/hr Methotrexate (Mexate -) 7.5 mg PO Th@1000 [facility] Methylprednisolone Sodium Succinate (Solu-Medrol -) 40 mg IVPUSH Q6H-IV [facility] Last Admin: 12/22/17 09:41 Dose: 40 mg Metoprolol Succinate (Toprol Xl -) 50 mg PO HS [facility] Last Admin: 12/21/17 21:43 Dose: 50 mg Metoprolol Succinate (Toprol Xl -) 100 mg PO AM [facility] Last Admin: 12/22/17 06:19 Dose: 100 mg Nortriptyline HCl (Pamelor -) 20 mg PO HS [facility] Last Admin: 12/21/17 21:50 Dose: 20 mg Senna/Docusate Sodium (Pericolace -) 1 tablet PO DAILY [facility] Last Admin: 12/22/17 09:43 Dose: 1 tablet - Objective Vital Signs: Vital Signs Temperature 97.5 F L 12/22/17 09:00 Pulse Rate 98 H 12/22/17 09:00 Respiratory Rate 18 12/22/17 09:00 Blood Pressure 113/54 12/22/17 09:00 O2 Sat by Pulse Oximetry (%) 97 12/22/17 09:00 Eyes: Yes: WNL, Conjunctiva Clear, EOM Intact HENT: Yes: WNL, Atraumatic, Normocephalic Neck: Yes: WNL, Supple, Trachea Midline Cardiovascular: Yes: WNL, Regular Rate and Rhythm Respiratory: Yes: Rhonchi Gastrointestinal: Yes: WNL, Normal Bowel Sounds Genitourinary: Yes: WNL Musculoskeletal: Yes: WNL Extremities: Yes: WNL Edema: No Integumentary: Yes: WNL Neurological: Yes: WNL, Alert, Oriented ...Motor Strength: WNL Psychiatric: Yes: WNL Labs: CBC, BMP 12/21/17 05:50 12/21/17 05:50 INR, PTT INR 1.16 (0.82-1.09) H 12/20/17 16:05 Laboratory Tests 12/20/17 12/20/17 12/20/17 14:21 14:27 14:27 WBC 5.4 RBC 3.18 L Hgb 10.6 L Hct 31.6 L D MCV 99.6 H MCH 33.4 D MCHC 33.5 RDW 16.0 H Plt Count 299 D MPV 8.6 Absolute Neuts (auto) Neutrophils % Neutrophils % (Manual) Band Neutrophils % Lymphocytes % Lymphocytes % (Manual) Monocytes % Monocytes % (Manual) Eosinophils % Eosinophils % (Manual) Basophils % Basophils % (Manual) Myelocytes % (Man) Promyelocytes % (Man) Blast Cells % (Manual) Nucleated RBC % Metamyelocytes Platelet Estimate Polychromasia Macrocytosis PT with INR INR PTT (Actin FS) D-Dimer Anticoagulation Therapy Puncture Site ABG pH ABG pCO2 at Pt Temp ABG pO2 at Pt Temp ABG HCO3 ABG O2 Sat (Measured) ABG O2 Content ABG Base Excess Angelo Test O2 Delivery Device Oxygen Flow Rate Vent Mode Vent Rate Mechanical Rate Pressure Support Vent Sodium 135 L Potassium 4.4 Chloride 97 L Carbon Dioxide 28 Anion Gap 10 BUN 37 H Creatinine 2.1 H Creat Clearance w eGFR 23.02 POC Glucometer Random Glucose 114 H Lactic Acid 1.5 Calcium 10.7 H Total Bilirubin 0.5 AST 34 ALT 39 Alkaline Phosphatase 54 Creatine Kinase 61 Troponin I < 0.02 B-Natriuretic Peptide Total Protein 7.0 Albumin 3.1 L Urine Color Urine Appearance Urine pH Ur Specific [place] Urine Protein Urine Glucose (UA) Urine Ketones Urine Blood Urine Nitrite Urine Bilirubin Urine Urobilinogen Ur Leukocyte Esterase Urine WBC (Auto) Urine RBC (Auto) Ur Epithelial Cells Hyaline Casts Urine Mucus Urine Yeast Stool Occult Blood 12/20/17 12/20/17 12/20/17 14:37 15:53 15:53 WBC RBC Hgb Hct MCV MCH MCHC RDW Plt Count MPV Absolute Neuts (auto) Neutrophils % Neutrophils % (Manual) Band Neutrophils % Lymphocytes % Lymphocytes % (Manual) Monocytes % Monocytes % (Manual) Eosinophils % Eosinophils % (Manual) Basophils % Basophils % (Manual) Myelocytes % (Man) Promyelocytes % (Man) Blast Cells % (Manual) Nucleated RBC % Metamyelocytes Platelet Estimate Polychromasia Macrocytosis PT with INR INR PTT (Actin FS) D-Dimer 263 Anticoagulation Therapy Puncture Site ABG pH ABG pCO2 at Pt Temp ABG pO2 at Pt Temp ABG HCO3 ABG O2 Sat (Measured) ABG O2 Content ABG Base Excess Angelo Test O2 Delivery Device Oxygen Flow Rate Vent Mode Vent Rate Mechanical Rate Pressure Support Vent Sodium Potassium Chloride Carbon Dioxide Anion Gap BUN Creatinine Creat Clearance w eGFR POC Glucometer Random Glucose Lactic Acid Calcium Total Bilirubin AST ALT Alkaline Phosphatase Creatine Kinase Troponin I B-Natriuretic Peptide 345.97 H Total Protein Albumin Urine Color Yellow Urine Appearance Slcloudy Urine pH 5.0 Ur Specific [place] 1.012 Urine Protein Negative Urine Glucose (UA) Negative Urine Ketones Negative Urine Blood Negative Urine Nitrite Negative Urine Bilirubin Negative Urine Urobilinogen Negative Ur Leukocyte Esterase 2+ H Urine WBC (Auto) 6 Urine RBC (Auto) None Ur Epithelial Cells Rare Hyaline Casts 90 Urine Mucus Rare Urine Yeast Few Stool Occult Blood 12/20/17 12/20/17 12/20/17 16:05 16:05 16:05 WBC RBC Hgb Hct MCV MCH MCHC RDW Plt Count MPV Absolute Neuts (auto) Neutrophils % Neutrophils % (Manual) Band Neutrophils % Lymphocytes % Lymphocytes % (Manual) Monocytes % Monocytes % (Manual) Eosinophils % Eosinophils % (Manual) Basophils % Basophils % (Manual) Myelocytes % (Man) Promyelocytes % (Man) Blast Cells % (Manual) Nucleated RBC % Metamyelocytes Platelet Estimate Polychromasia Macrocytosis PT with INR 13.10 H INR 1.16 H PTT (Actin FS) 29.9 D-Dimer Anticoagulation Therapy No Result Required. Puncture Site Left radial ABG pH 7.50 H ABG pCO2 at Pt Temp 32.9 L ABG pO2 at Pt Temp 135.0 H ABG HCO3 25.4 ABG O2 Sat (Measured) 98.9 ABG O2 Content 13.6 L ABG Base Excess 2.8 H Angelo Test Positive O2 Delivery Device No Result Required. Oxygen Flow Rate No Result Required. Vent Mode No Result Required. Vent Rate No Result Required. Mechanical Rate No Result Required. Pressure Support Vent No Result Required. Sodium Potassium Chloride Carbon Dioxide Anion Gap BUN Creatinine Creat Clearance w eGFR POC Glucometer Random Glucose Lactic Acid Calcium Total Bilirubin AST ALT Alkaline Phosphatase Creatine Kinase Troponin I B-Natriuretic Peptide Total Protein Albumin Urine Color Urine Appearance Urine pH Ur Specific [place] Urine Protein Urine Glucose (UA) Urine Ketones Urine Blood Urine Nitrite Urine Bilirubin Urine Urobilinogen Ur Leukocyte Esterase Urine WBC (Auto) Urine RBC (Auto) Ur Epithelial Cells Hyaline Casts Urine Mucus Urine Yeast Stool Occult Blood 12/20/17 12/20/17 12/21/17 16:13 20:30 05:50 WBC 5.0 RBC 2.64 L Hgb 9.0 L Hct 26.4 L D MCV 99.8 H MCH 34.1 H MCHC 34.2 RDW 15.5 Plt Count 213 D MPV 8.6 Absolute Neuts (auto) 3.6 Neutrophils % 71.3 Neutrophils % (Manual) 61.2 Band Neutrophils % 0.0 Lymphocytes % 18.3 Lymphocytes % (Manual) 29.6 Monocytes % 7.4 Monocytes % (Manual) 3 L Eosinophils % 2.1 Eosinophils % (Manual) 3.0 Basophils % 0.9 Basophils % (Manual) 3.1 H Myelocytes % (Man) 0 Promyelocytes % (Man) 0 Blast Cells % (Manual) 0 Nucleated RBC % 0 Metamyelocytes 0 Platelet Estimate Normal Polychromasia 1+ Macrocytosis 1+ PT with INR INR PTT (Actin FS) D-Dimer Anticoagulation Therapy Puncture Site ABG pH ABG pCO2 at Pt Temp ABG pO2 at Pt Temp ABG HCO3 ABG O2 Sat (Measured) ABG O2 Content ABG Base Excess Angelo Test O2 Delivery Device Oxygen Flow Rate Vent Mode Vent Rate Mechanical Rate Pressure Support Vent Sodium Potassium Chloride Carbon Dioxide Anion Gap BUN Creatinine Creat Clearance w eGFR POC Glucometer Random Glucose Lactic Acid Calcium Total Bilirubin AST ALT Alkaline Phosphatase Creatine Kinase 76 Troponin I < 0.02 B-Natriuretic Peptide Total Protein Albumin Urine Color Urine Appearance Urine pH Ur Specific [place] Urine Protein Urine Glucose (UA) Urine Ketones Urine Blood Urine Nitrite Urine Bilirubin Urine Urobilinogen Ur Leukocyte Esterase Urine WBC (Auto) Urine RBC (Auto) Ur Epithelial Cells Hyaline Casts Urine Mucus Urine Yeast Stool Occult Blood Negative 12/21/17 12/21/17 12/21/17 05:50 06:55 16:54 WBC RBC Hgb Hct MCV MCH MCHC RDW Plt Count MPV Absolute Neuts (auto) Neutrophils % Neutrophils % (Manual) Band Neutrophils % Lymphocytes % Lymphocytes % (Manual) Monocytes % Monocytes % (Manual) Eosinophils % Eosinophils % (Manual) Basophils % Basophils % (Manual) Myelocytes % (Man) Promyelocytes % (Man) Blast Cells % (Manual) Nucleated RBC % Metamyelocytes Platelet Estimate Polychromasia Macrocytosis PT with INR INR PTT (Actin FS) D-Dimer Anticoagulation Therapy Puncture Site ABG pH ABG pCO2 at Pt Temp ABG pO2 at Pt Temp ABG HCO3 ABG O2 Sat (Measured) ABG O2 Content ABG Base Excess Angelo Test O2 Delivery Device Oxygen Flow Rate Vent Mode Vent Rate Mechanical Rate Pressure Support Vent Sodium 137 Potassium 4.2 Chloride 100 Carbon Dioxide 30 Anion Gap 7 L BUN 33 H Creatinine 1.7 H Creat Clearance w eGFR 29.38 POC Glucometer 113 159 Random Glucose 105 Lactic Acid Calcium 10.0 Total Bilirubin 0.4 AST 23 ALT 31 Alkaline Phosphatase 40 L D Creatine Kinase Troponin I B-Natriuretic Peptide Total Protein 5.8 L Albumin 2.7 L Urine Color Urine Appearance Urine pH Ur Specific [place] Urine Protein Urine Glucose (UA) Urine Ketones Urine Blood Urine Nitrite Urine Bilirubin Urine Urobilinogen Ur Leukocyte Esterase Urine WBC (Auto) Urine RBC (Auto) Ur Epithelial Cells Hyaline Casts Urine Mucus Urine Yeast Stool Occult Blood 12/21/17 12/21/17 12/22/17 16:54 19:35 06:03 WBC RBC Hgb Hct MCV MCH MCHC RDW Plt Count MPV Absolute Neuts (auto) Neutrophils % Neutrophils % (Manual) Band Neutrophils % Lymphocytes % Lymphocytes % (Manual) Monocytes % Monocytes % (Manual) Eosinophils % Eosinophils % (Manual) Basophils % Basophils % (Manual) Myelocytes % (Man) Promyelocytes % (Man) Blast Cells % (Manual) Nucleated RBC % Metamyelocytes Platelet Estimate Polychromasia Macrocytosis PT with INR INR PTT (Actin FS) D-Dimer Anticoagulation Therapy Puncture Site ABG pH ABG pCO2 at Pt Temp ABG pO2 at Pt Temp ABG HCO3 ABG O2 Sat (Measured) ABG O2 Content ABG Base Excess Angelo Test O2 Delivery Device Oxygen Flow Rate Vent Mode Vent Rate Mechanical Rate Pressure Support Vent Sodium Potassium Chloride Carbon Dioxide Anion Gap BUN Creatinine Creat Clearance w eGFR POC Glucometer 171 169 Random Glucose Lactic Acid Calcium Total Bilirubin AST ALT Alkaline Phosphatase Creatine Kinase 50 Troponin I < 0.02 B-Natriuretic Peptide Total Protein Albumin Urine Color Urine Appearance Urine pH Ur Specific [place] Urine Protein Urine Glucose (UA) Urine Ketones Urine Blood Urine Nitrite Urine Bilirubin Urine Urobilinogen Ur Leukocyte Esterase Urine WBC (Auto) Urine RBC (Auto) Ur Epithelial Cells Hyaline Casts Urine Mucus Urine Yeast Stool Occult Blood Problem List - Problems (1) Acute kidney failure Code(s): N17.9 - ACUTE KIDNEY FAILURE, UNSPECIFIED (2) Shortness of breath Code(s): R06.02 - SHORTNESS OF BREATH (3) Sebaceous cyst Code(s): L72.3 - SEBACEOUS CYST (4) Carpal tunnel syndrome Code(s): G56.00 - CARPAL TUNNEL SYNDROME, UNSPECIFIED UPPER LIMB (5) Chronic pain Code(s): G89.29 - OTHER CHRONIC PAIN (6) Chronic renal insufficiency, stage III (moderate) Code(s): N18.3 - CHRONIC KIDNEY DISEASE, STAGE 3 (MODERATE) (7) Diabetes mellitus treated with oral medication Code(s): E11.9 - TYPE 2 DIABETES MELLITUS WITHOUT COMPLICATIONS (8) Diabetic neuropathy Code(s): E11.40 - TYPE 2 DIABETES MELLITUS WITH DIABETIC NEUROPATHY, UNSP (9) Dry eyes Code(s): H04.123 - DRY EYE SYNDROME OF BILATERAL [place] (10) Glaucoma Code(s): H40.9 - UNSPECIFIED GLAUCOMA (11) Osteoarthritis Code(s): M19.90 - UNSPECIFIED OSTEOARTHRITIS, UNSPECIFIED SITE (12) PVD (peripheral vascular disease) with claudication Code(s): I73.9 - PERIPHERAL VASCULAR DISEASE, UNSPECIFIED (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
--- NOTE | 2017-12-22 13:17 | CONSULT ---
Consult - text type - Consultation Consultation Note: Renal Consult for GIL on CKD This is a 72 year old woman with PMhx of CKD Stage 3, Hypertension, DM, Arthritis who presented with SOB and admitted hypoxic respiratory failure. Pt now feels better on steroids and Nebs. VQ scan was low probalitiy and LE dopper was negative for DVT. Cr was 1.2 in august and 1.5 in November (done with pmd). Pt was on LINDSEY (not recently started). Was given low dose lasix course in end of November. No rash. No flank pain, hematuria, dysuria. No CAMEJO, confusion, N/V/D. No NSAID use. PMHx: as above Allergies: NKDA Family Hx: NC Social hx: No T/A/D ROS: as per HPI Home Medications Medication Instructions Recorded Aspirin [ASA -] 81 mg PO DAILY 05/18/16 Gabapentin [Neurontin -] 300 mg PO BID 05/18/16 Lisinopril [Prinivil] 20 mg PO DAILY 05/18/16 Metoprolol Succinate [Toprol Xl -] 50 mg PO HS 05/18/16 Metoprolol Succinate [Toprol Xl -] 100 mg PO AM 05/18/16 Nortriptyline HCl [Pamelor -] 20 mg PO HS 05/18/16 Simvastatin [Zocor -] 20 mg PO HS 05/18/16 Medical Marijuana [Medical 1 inh IH BID 09/07/16 Marijuana Oil] Cholecalciferol (Vitamin D3) 400 unit PO DAILY 11/09/16 [Vitamin D-400] Cyanocobalamin [Vitamin B12 -] 1,000 mcg PO DAILY 11/09/16 Methotrexate [Mexate -] 7.5 mg PO Q7D 11/09/16 Multivitamins [Tab-A-Vit -] 1 tab PO DAILY 11/09/16 [place]-3 Fatty Acids [Fish Oil] 3,400 mg PO DAILY 11/09/16 Sennosides/Docusate Sodium [Stool 1 each PO DAILY 11/09/16 Softener-Laxative Tablet] Acetaminophen [Tylenol -] 500 mg PO Q4H PRN #60 tablet 11/10/16 Infliximab [Remicade 100MG Vial] 100 mg IV ASDIR 12/20/17 Vital Signs Temperature 97.5 F L 12/22/17 09:00 Pulse Rate 98 H 12/22/17 09:00 Respiratory Rate 18 12/22/17 09:00 Blood Pressure 113/54 12/22/17 09:00 O2 Sat by Pulse Oximetry (%) 97 12/22/17 09:00 Intake & Output 12/19/17 12/20/17 12/21/17 12/22/17 23:59 23:59 23:59 23:59 Intake Total 380 2095 Balance 380 2095 Weight 77.564 kg 77.564 kg NAD awake and alert RRR, No M/R CTA, no rales or wheeze soft NT/ND No LE edema, clubbing or cyanosis CBC, BMP 12/21/17 05:50 12/21/17 05:50 Current Medications Acetaminophen (Tylenol -) 650 mg PO Q6H PRN PRN Reason: FEVER Albuterol/Ipratropium (Duoneb -) 1 amp NEB Q4H PRN PRN Reason: SHORTNESS OF BREATH Albuterol/Ipratropium (Duoneb -) 1 amp NEB RQID [facility] Last Admin: 12/22/17 08:42 Dose: 1 amp Aspirin (Asa -) 81 mg PO DAILY [facility] Last Admin: 12/22/17 09:42 Dose: 81 mg Atorvastatin Calcium (Lipitor -) 10 mg PO HS [facility] Last Admin: 12/21/17 21:43 Dose: 10 mg Gabapentin (Neurontin -) 300 mg PO BID [facility] Last Admin: 12/22/17 09:41 Dose: 300 mg Sodium Chloride (Normal Saline -) 1,000 mls @ 75 mls/hr IV ASDIR [facility] Last Admin: 12/21/17 21:44 Dose: 75 mls/hr Methotrexate (Mexate -) 7.5 mg PO Th@1000 [facility] Methylprednisolone Sodium Succinate (Solu-Medrol -) 40 mg IVPUSH Q6H-IV [facility] Last Admin: 12/22/17 09:41 Dose: 40 mg Metoprolol Succinate (Toprol Xl -) 50 mg PO HS [facility] Last Admin: 12/21/17 21:43 Dose: 50 mg Metoprolol Succinate (Toprol Xl -) 100 mg PO AM [facility] Last Admin: 12/22/17 06:19 Dose: 100 mg Nortriptyline HCl (Pamelor -) 20 mg PO HS [facility] Last Admin: 12/21/17 21:50 Dose: 20 mg Senna/Docusate Sodium (Pericolace -) 1 tablet PO DAILY [facility] Last Admin: 12/22/17 09:43 Dose: 1 tablet 72 year old woman with PMhx of CKD Stage 3, Hypertension, DM, Arthritis who presented with SOB and admitted hypoxic respiratory failure. #GIL on CKD #CKD (baseline Cr 1.1) #SOB/hypoxic respiratory failure #Anemia Etiology of GIL is uncertain Check Urien studies and imaging studies of the kidney and bladder Cr improving since admission, will continue gentle IVF Trend renal function and electrolytes agree with holding ACEi at this time avoid IV contrast, NSAIDs and aminoglycosides at this time continue steroids and nebs as per pulmonary check iron studies, no acute indication for transfusion at this time Thank you Will follow Christian Goldman DO
--- NOTE | 2017-12-22 15:59 | ECHO ---
Name: CATALE, EVAN Exam:Adult Echocardiogram Study Date: 12/22/2017 02:31 PM Reason For Study: EF MMode/2D Measurements & Calculations IVSd: 0.90 cm Ao root diam: 2.8 cm LVIDd: 3.6 cm LA dimension: 2.9 cm LVIDs: 2.3 cm LVPWd: 1.0 cm EDV(Teich): 53.0 ml LVOT diam: 2.0 cm ESV(Teich): 18.4 ml TAPSE: 2.6 cm RV S Mick: 18.8 cm/sec Doppler Measurements & Calculations MV E max mick: 77.1 cm/sec Ao V2 max: 313.6 cm/sec MV A max mick: 92.2 cm/sec Ao max P.3 mmHg MV E/A: 0.84 Ao V2 mean: 209.4 cm/sec MV dec time: 0.28 sec Ao mean P.3 mmHg Ao V2 VTI: 51.6 cm SO(I,D): 1.9 cm2 SO(V,D): 1.5 cm2 LV V1 max P.7 mmHg SV(LVOT): 95.7 ml LV V1 mean P.0 mmHg LV V1 max: 147.5 cm/sec LV V1 mean: 88.2 cm/sec LV V1 VTI: 29.2 cm Med Peak E' Mick: 6.4 cm/sec Med E/e': 12.0 Lat Peak E' Mick: 2.7 cm/sec Lat E/e': 28.3 Procedure A two-dimensional transthoracic echocardiogram with color flow and Doppler was performed. The study w as technically difficult with many images being suboptimal in quality. Left Ventricle The left ventricular size, thickness and function are normal. The left ventricular ejection fraction is normal. E/A reversal consistent with but not diagnostic of poor LV compliance. No regional wall motio n abnormalities noted. Right Ventricle The right ventricle is normal in size and function. Atria Normal left and right atrial size and function. Mitral Valve There is mild mitral valve thickening. There is no mitral valve stenosis. There is trace to mild mitr al regurgitation. Tricuspid Valve There is mild tricuspid valve thickening. There is no tricuspid stenosis. There was insufficient TR d etected to calculate RV systolic pressure. Aortic Valve The aortic valve is not well visualized. There is moderate aortic valve thickening. There is moderate aortic sclerosis.;. Moderate valvular aortic stenosis. No aortic regurgitation is present. Pulmonic Valve The pulmonic valve is not well visualized. There is no pulmonic valvular stenosis. There is no pulmon ic valvular regurgitation. Great Vessels The aortic root is normal size. Pericardium/Pleura There is no pericardial effusion. Interpretation Summary The left ventricular size, thickness and function are normal The left ventricular ejection fraction is normal. No regional wall motion abnormalities noted. There is trace to mild mitral regurgitation. There was insufficient TR detected to calculate RV systolic pressure. E/A reversal consistent with but not diagnostic of poor LV compliance The aortic valve is not well visualized. There is moderate aortic valve thickening. There is moderate aortic sclerosis.; Moderate valvular aortic stenosis. MD Sina Ferreira 12/22/2017 03:59 PM
--- NOTE | 2017-12-22 18:30 | PN ---
Progress Note, Physician History of Present Illness: feeling better - Current Medication List Current Medications: Active Medications Acetaminophen (Tylenol -) 650 mg PO Q6H PRN PRN Reason: FEVER Albuterol/Ipratropium (Duoneb -) 1 amp NEB Q4H PRN PRN Reason: SHORTNESS OF BREATH Albuterol/Ipratropium (Duoneb -) 1 amp NEB RQID [facility] Last Admin: 12/22/17 17:09 Dose: 1 amp Aspirin (Asa -) 81 mg PO DAILY [facility] Last Admin: 12/22/17 09:42 Dose: 81 mg Atorvastatin Calcium (Lipitor -) 10 mg PO HS [facility] Last Admin: 12/21/17 21:43 Dose: 10 mg Gabapentin (Neurontin -) 300 mg PO BID [facility] Last Admin: 12/22/17 09:41 Dose: 300 mg Sodium Chloride (Normal Saline -) 1,000 mls @ 75 mls/hr IV ASDIR [facility] Last Admin: 12/21/17 21:44 Dose: 75 mls/hr Methotrexate (Mexate -) 7.5 mg PO Th@1000 [facility] Methylprednisolone Sodium Succinate (Solu-Medrol -) 40 mg IVPUSH Q6H-IV [facility] Last Admin: 12/22/17 15:18 Dose: 40 mg Metoprolol Succinate (Toprol Xl -) 50 mg PO HS [facility] Last Admin: 12/21/17 21:43 Dose: 50 mg Metoprolol Succinate (Toprol Xl -) 100 mg PO AM [facility] Last Admin: 12/22/17 06:19 Dose: 100 mg Nortriptyline HCl (Pamelor -) 20 mg PO [facility] Last Admin: 12/21/17 21:50 Dose: 20 mg Senna/Docusate Sodium (Pericolace -) 1 tablet PO DAILY [facility] Last Admin: 12/22/17 09:43 Dose: 1 tablet - Objective Vital Signs: Vital Signs Temperature 97.5 F L 12/22/17 17:24 Pulse Rate 101 H 12/22/17 17:24 Respiratory Rate 18 12/22/17 17:24 Blood Pressure 119/67 12/22/17 17:24 O2 Sat by Pulse Oximetry (%) 97 12/22/17 09:00 Constitutional: Yes: No Distress HENT: Yes: Atraumatic Neck: Yes: Supple Cardiovascular: Yes: Regular Rate and Rhythm Respiratory: Yes: CTA Bilaterally Gastrointestinal: Yes: Normal Bowel Sounds Extremities: Yes: WNL Neurological: Yes: Alert, Oriented Labs: CBC, BMP 12/21/17 05:50 12/21/17 05:50 INR, PTT INR 1.16 (0.82-1.09) H 12/20/17 16:05 Problem List - Problems (1) HTN (hypertension) Assessment/Plan: on meds monitor Code(s): I10 - ESSENTIAL (PRIMARY) HYPERTENSION (2) Acute kidney failure Assessment/Plan: on hydration Code(s): N17.9 - ACUTE KIDNEY FAILURE, UNSPECIFIED (3) Shortness of breath Assessment/Plan: on meds stable steroids duo nebs pulmonary on board Code(s): R06.02 - SHORTNESS OF BREATH (4) Diabetes mellitus treated with oral medication Code(s): E11.9 - TYPE 2 DIABETES MELLITUS WITHOUT COMPLICATIONS (5) Diabetic neuropathy Code(s): E11.40 - TYPE 2 DIABETES MELLITUS WITH DIABETIC NEUROPATHY, UNSP (6) Rheumatoid arteritis Code(s): I00 - RHEUMATIC FEVER WITHOUT HEART INVOLVEMENT
[2017-12-22] MEDS ORDERED: PT OWN MED DRAWER 7, Y5N ONE (21:15)
[2017-12-22] MEDS: NORTRIPTYLINE HCL 10 MG CAPSULE PO SCH (21:26)
[2017-12-22] MEDS: ATORVASTATIN CA 10 MG TABLET (FP) PO SCH (21:26)
[2017-12-22] MEDS: SODIUM CHLORIDE 1,000 ML IV SCH (21:33)
[2017-12-23] MEDS: methylPREDNISolone NA SUCC 40 MG/1 ML VIAL IVPUSH SCH ×3 (03:46→21:46)
[2017-12-23 06:24] LABS: BASO % 0.2 % (0-2.0); HEMATOCRIT 25.3 % (32.4-45.2); HEMOGLOBIN 8.6 GM/dL (10.7-15.3); LYMPH % 10.9 % (8-40); MCH 34.4 pg (25.7-33.7); MCHC 33.8 g/dl (32.0-36.0); MEAN CELL VOLUME 101.8 fl (80-96); MEAN PLT VOLUME 8.3 fl (7.5-11.1); MONO % 7.6 % (3.8-10.2); NEUT % 81.3 % (42.8-82.8); PLATELET COUNT 224 K/MM3 (134-434); RBC 2.49 M/mm3 (3.60-5.2); RDW 16.2 % (11.6-15.6); WHITE BLOOD COUNT 13.3 K/mm3 (4.0-10.0)
[2017-12-23 06:54] LABS: ALBUMIN 2.5 g/dl (3.4-5.0); ANION GAP 8 (8-16); BILIRUBIN,TOTAL 0.2 mg/dL (0.2-1.0); BLOOD UREA NITROGEN 31 mg/dL (7-18); CHLORIDE 106 mmol/L (98-107); CO2 27 mmol/L (21-32); CREATININE 1.1 mg/dL (0.55-1.02); GLUCOSE,RANDOM 171 mg/dL (74-106); MAGNESIUM 1.8 mg/dL (1.8-2.4); PHOSPHOROUS 3.4 mg/dL (2.5-4.9); POTASSIUM 4.6 mmol/L (3.5-5.1); SGOT/AST 17 U/L (15-37); SGPT/ALT 28 U/L (12-78); SODIUM 141 mmol/L (136-145); TOT PROT 5.5 g/dl (6.4-8.2)
[2017-12-23 07:11] LABS: ALK PHOS 55 U/L (45-117); CALCIUM 10.1 mg/dL (8.5-10.1)
[2017-12-23] MEDS: ALBUTEROL SO4 2.5/IPRATROPIUM 0.5 INH SOL 3 ML VIAL.NEB. NEB SCH ×4 (07:57→20:58)
[2017-12-23] MEDS ORDERED: PT OWN MED DRAWER 7, Y5N ONE (09:33)
[2017-12-23] MEDS: ASPIRIN 81 MG CHEWABLE TABLETS PO SCH (09:36)
[2017-12-23] MEDS: GABAPENTIN 300 MG CAPSULE (FP) PO SCH ×2 (09:36→21:47)
[2017-12-23] MEDS: SENNOSIDES/DOCUSATE COMBO (SENNA PLUS) TABLET (UD) PO SCH (09:36)
[2017-12-23] MEDS ORDERED: METHOTREXATE 2.5 MG TABLET PO SCH (10:00)
[2017-12-23 10:38] LABS: ANISOCYTOSIS 1+; MACROCYTOSIS 1+; OVALOCYTE 1+; PLATELET ESTIMATE NORMAL
--- NOTE | 2017-12-23 12:19 | PN ---
Progress Note (short form) - Note Progress Note: PULMONARY States breathing is improving. Less cough and wheezing. Vital Signs Period Temp Pulse Resp BP Sys/Lopez Pulse Ox Last 24 Hr 97.3 F-98 F 94-105 18-20 105-130/60-73 99 Gen: NAD at rest Heart: RRR Lung: scattered wheezes, rales Abd: soft, nontender Ext: no edema CBC, BMP 12/23/17 05:30 12/23/17 05:30 Active Medications Acetaminophen (Tylenol -) 650 mg PO Q6H PRN PRN Reason: FEVER Last Admin: 12/23/17 05:52 Dose: 650 mg Albuterol/Ipratropium (Duoneb -) 1 amp NEB Q4H PRN PRN Reason: SHORTNESS OF BREATH Albuterol/Ipratropium (Duoneb -) 1 amp NEB RQID [facility] Last Admin: 12/23/17 11:27 Dose: 1 amp Aspirin (Asa -) 81 mg PO DAILY [facility] Last Admin: 12/23/17 09:36 Dose: 81 mg Atorvastatin Calcium (Lipitor -) 10 mg PO HS [facility] Last Admin: 12/22/17 21:26 Dose: 10 mg Gabapentin (Neurontin -) 300 mg PO BID [facility] Last Admin: 12/23/17 09:36 Dose: 300 mg Methotrexate (Mexate -) 7.5 mg PO Th@1000 [facility] Last Admin: 12/23/17 09:36 Dose: 7.5 mg Methylprednisolone Sodium Succinate (Solu-Medrol -) 40 mg IVPUSH BID [facility] Metoprolol Succinate (Toprol Xl -) 50 mg PO HS [facility] Last Admin: 12/22/17 21:26 Dose: 50 mg Metoprolol Succinate (Toprol Xl -) 100 mg PO AM [facility] Last Admin: 12/23/17 06:07 Dose: 100 mg Nortriptyline HCl (Pamelor -) 20 mg PO HS [facility] Last Admin: 12/22/17 21:26 Dose: 20 mg Senna/Docusate Sodium (Pericolace -) 1 tablet PO DAILY [facility] Last Admin: 12/23/17 09:36 Dose: 1 tablet A/P Acute Asthma Exacerbation Acute Kidney Injury HTN RA Anemia - continue medrol at current dose - can likely change steroids to PO in AM and taper as outpt - inhaled bronchodilators - O2 to keep SpO2 >90% - DVT prophylaxis
[2017-12-23] MEDS: ALBUTEROL SO4 2.5/IPRATROPIUM 0.5 INH SOL 3 ML VIAL.NEB. NEB PRN (18:37)
--- NOTE | 2017-12-23 19:23 | PN ---
Progress Note, Physician - Current Medication List Current Medications: Active Medications Acetaminophen (Tylenol -) 650 mg PO Q6H PRN PRN Reason: FEVER Last Admin: 12/23/17 05:52 Dose: 650 mg Albuterol/Ipratropium (Duoneb -) 1 amp NEB Q4H PRN PRN Reason: SHORTNESS OF BREATH Last Admin: 12/23/17 18:37 Dose: 1 amp Albuterol/Ipratropium (Duoneb -) 1 amp NEB RQID [facility] Last Admin: 12/23/17 16:13 Dose: 1 amp Aspirin (Asa -) 81 mg PO DAILY [facility] Last Admin: 12/23/17 09:36 Dose: 81 mg Atorvastatin Calcium (Lipitor -) 10 mg PO [facility] Last Admin: 12/22/17 21:26 Dose: 10 mg Gabapentin (Neurontin -) 300 mg PO BID [facility] Last Admin: 12/23/17 09:36 Dose: 300 mg Methotrexate (Mexate -) 7.5 mg PO Th@1000 [facility] Last Admin: 12/23/17 09:36 Dose: 7.5 mg Methylprednisolone Sodium Succinate (Solu-Medrol -) 40 mg IVPUSH BID [facility] Metoprolol Succinate (Toprol Xl -) 50 mg PO HS [facility] Last Admin: 12/22/17 21:26 Dose: 50 mg Metoprolol Succinate (Toprol Xl -) 100 mg PO AM [facility] Last Admin: 12/23/17 06:07 Dose: 100 mg Nortriptyline HCl (Pamelor -) 20 mg PO [facility] Last Admin: 12/22/17 21:26 Dose: 20 mg Senna/Docusate Sodium (Pericolace -) 1 tablet PO DAILY [facility] Last Admin: 12/23/17 09:36 Dose: 1 tablet - Objective Vital Signs: Vital Signs Temperature 98.2 F 12/23/17 14:00 Pulse Rate 98 H 12/23/17 14:00 Respiratory Rate 20 12/23/17 14:00 Blood Pressure 118/56 12/23/17 14:00 O2 Sat by Pulse Oximetry (%) 99 12/23/17 09:00 Constitutional: Yes: No Distress Neck: Yes: Supple Cardiovascular: Yes: Regular Rate and Rhythm Respiratory: Yes: Rhonchi Gastrointestinal: Yes: Normal Bowel Sounds Extremities: Yes: WNL Labs: CBC, BMP 12/23/17 05:30 12/23/17 05:30 INR, PTT INR 1.16 (0.82-1.09) H 12/20/17 16:05 Problem List - Problems (1) HTN (hypertension) Assessment/Plan: on meds monitor Code(s): I10 - ESSENTIAL (PRIMARY) HYPERTENSION (2) Acute kidney failure Assessment/Plan: on hydration Code(s): N17.9 - ACUTE KIDNEY FAILURE, UNSPECIFIED (3) Shortness of breath Assessment/Plan: on meds stable steroids Code(s): R06.02 - SHORTNESS OF BREATH (4) Diabetes mellitus treated with oral medication Code(s): E11.9 - TYPE 2 DIABETES MELLITUS WITHOUT COMPLICATIONS (5) Diabetic neuropathy Code(s): E11.40 - TYPE 2 DIABETES MELLITUS WITH DIABETIC NEUROPATHY, UNSP (6) Rheumatoid arteritis Code(s): I00 - RHEUMATIC FEVER WITHOUT HEART INVOLVEMENT
--- NOTE | 2017-12-23 19:34 | PN ---
Progress Note (short form) - Note Progress Note: Renal follow up for GIL on CKD Pt seen and examined no acute complaints feels well making urine tolerating oral diet Vital Signs Temp 98.0 F 12/23/17 18:00 Pulse 119 H 12/23/17 18:00 Resp 20 12/23/17 18:00 BP 120/73 12/23/17 18:00 Pulse Ox 99 12/23/17 09:00 Intake & Output 12/20/17 12/21/17 12/22/17 12/23/17 23:59 23:59 23:59 23:59 Intake Total 380 2095 Balance 380 2095 Weight 77.564 kg 77.564 kg NAD MMM CTA No LE edema CBC, BMP 12/23/17 05:30 12/23/17 05:30 Current Medications Acetaminophen (Tylenol -) 650 mg PO Q6H PRN PRN Reason: FEVER Last Admin: 12/23/17 05:52 Dose: 650 mg Albuterol/Ipratropium (Duoneb -) 1 amp NEB Q4H PRN PRN Reason: SHORTNESS OF BREATH Last Admin: 12/23/17 18:37 Dose: 1 amp Albuterol/Ipratropium (Duoneb -) 1 amp NEB RQID [facility] Last Admin: 12/23/17 16:13 Dose: 1 amp Aspirin (Asa -) 81 mg PO DAILY [facility] Last Admin: 12/23/17 09:36 Dose: 81 mg Atorvastatin Calcium (Lipitor -) 10 mg PO HS [facility] Last Admin: 12/22/17 21:26 Dose: 10 mg Gabapentin (Neurontin -) 300 mg PO BID [facility] Last Admin: 12/23/17 09:36 Dose: 300 mg Methotrexate (Mexate -) 7.5 mg PO Th@1000 [facility] Last Admin: 12/23/17 09:36 Dose: 7.5 mg Methylprednisolone Sodium Succinate (Solu-Medrol -) 40 mg IVPUSH BID [facility] Metoprolol Succinate (Toprol Xl -) 50 mg PO HS [facility] Last Admin: 12/22/17 21:26 Dose: 50 mg Metoprolol Succinate (Toprol Xl -) 100 mg PO AM [facility] Last Admin: 12/23/17 06:07 Dose: 100 mg Nortriptyline HCl (Pamelor -) 20 mg PO [facility] Last Admin: 12/22/17 21:26 Dose: 20 mg Senna/Docusate Sodium (Pericolace -) 1 tablet PO DAILY [facility] Last Admin: 12/23/17 09:36 Dose: 1 tablet 72 year old woman with PMhx of CKD Stage 3, Hypertension, DM, Arthritis who presented with SOB and admitted hypoxic respiratory failure. #GIL on CKD #CKD (baseline Cr 1.1) #SOB/hypoxic respiratory failure #Anemia Renal function improved to baseline can d/c IVF Urine studies show FeNa < 1 and non-significant proteinuria continue to hold ACEi for now Trend renal function and electrolytes Christian Goldman DO
[2017-12-23] MEDS ORDERED: FUROSEMIDE 40 MG/4 ML INJECTABLE VIAL IVPUSH ONE (21:00)
[2017-12-23] MEDS: ATORVASTATIN CA 10 MG TABLET (FP) PO SCH (21:47)
[2017-12-23] MEDS: NORTRIPTYLINE HCL 10 MG CAPSULE PO SCH (21:47)
--- NOTE | 2017-12-24 03:13 | PN ---
Progress Note, Physician Chief Complaint: PT A&Ox3; occasional cough. History of Present Illness: 72 year old white female with PMH HTN, diabetes, tachycardia, chronic arthritis (requiring methotrexate), anemia, 20-25 pack year smoking history (quit years ago, aortic stenosis, diastolic CHF, and family history of early MT, presents to ED today for 3 days of SOB associated with diaphoresis, nausea, vomiting, diarrhea, headache, lightheadedness, cough. Pt states she had one episode of chest pain yesterday 12/19/17 for 1-2 seconds, located to her left chest, described as "uncomfortable", non-radiating, self-resolving. Her lisonpril was recently decreased from 20 mg to 10 mg for hypotension. Pt is on Remicade infusions for chronic arthritis, last infusion x8 weeks ago. Pt states her father at 37 of an MT. Her two brothers also had MIs, one at 65 and the other in his fifties. Pt had stress MIBI 06/2016: no myocardia ischemia; Normal LVEF; poor exercise functional capacity (walked 3 minutes using Mookie protocol; test stopped due to AF with RVR, fatigue). - Current Medication List Current Medications: Active Medications Acetaminophen (Tylenol -) 650 mg PO Q6H PRN PRN Reason: FEVER Last Admin: 12/23/17 05:52 Dose: 650 mg Albuterol/Ipratropium (Duoneb -) 1 amp NEB Q4H PRN PRN Reason: SHORTNESS OF BREATH Last Admin: 12/23/17 18:37 Dose: 1 amp Albuterol/Ipratropium (Duoneb -) 1 amp NEB RQID [facility] Last Admin: 12/23/17 20:58 Dose: 1 amp Aspirin (Asa -) 81 mg PO DAILY [facility] Last Admin: 12/23/17 09:36 Dose: 81 mg Atorvastatin Calcium (Lipitor -) 10 mg PO HS [facility] Last Admin: 12/23/17 21:47 Dose: 10 mg Gabapentin (Neurontin -) 300 mg PO BID [facility] Last Admin: 12/23/17 21:47 Dose: 300 mg Methotrexate (Mexate -) 7.5 mg PO Th@1000 [facility] Last Admin: 12/23/17 09:36 Dose: 7.5 mg Methylprednisolone Sodium Succinate (Solu-Medrol -) 40 mg IVPUSH BID [facility] Last Admin: 12/23/17 21:46 Dose: 40 mg Metoprolol Succinate (Toprol Xl -) 50 mg PO HS [facility] Last Admin: 12/23/17 21:47 Dose: 50 mg Metoprolol Succinate (Toprol Xl -) 100 mg PO AM [facility] Last Admin: 12/23/17 06:07 Dose: 100 mg Nortriptyline HCl (Pamelor -) 20 mg PO HS [facility] Last Admin: 12/23/17 21:47 Dose: 20 mg Senna/Docusate Sodium (Pericolace -) 1 tablet PO DAILY [facility] Last Admin: 12/23/17 09:36 Dose: 1 tablet - Objective Vital Signs: Vital Signs Temperature 97.7 F 12/23/17 21:00 Pulse Rate 100 H 12/23/17 21:00 Respiratory Rate 18 12/23/17 21:00 Blood Pressure 129/67 12/23/17 21:00 O2 Sat by Pulse Oximetry (%) 98 12/23/17 21:00 Labs: CBC, BMP 12/23/17 05:30 12/23/17 05:30 INR, PTT INR 1.16 (0.82-1.09) H 12/20/17 16:05 Problem List - Problems (1) Acute hypoxemic respiratory failure Code(s): J96.01 - ACUTE RESPIRATORY FAILURE WITH HYPOXIA (2) Acute kidney failure Assessment/Plan: with hydration, pt has improving BUn/Cr; f/u Is and Os. Code(s): N17.9 - ACUTE KIDNEY FAILURE, UNSPECIFIED (3) HTN (hypertension) Code(s): I10 - ESSENTIAL (PRIMARY) HYPERTENSION (4) Rheumatoid arthritis Assessment/Plan: on methotrexate. Code(s): M06.9 - RHEUMATOID ARTHRITIS, UNSPECIFIED (5) Diabetes mellitus treated with oral medication Code(s): E11.9 - TYPE 2 DIABETES MELLITUS WITHOUT COMPLICATIONS (6) Osteoarthritis Code(s): M19.90 - UNSPECIFIED OSTEOARTHRITIS, UNSPECIFIED SITE (7) Hyperlipidemia Assessment/Plan: on statin; f/u lipid profile and keep LDL < 70 mg/dl (strong family hx CAD); check TSH. Code(s): E78.5 - HYPERLIPIDEMIA, UNSPECIFIED (8) Atypical chest pain Assessment/Plan: TNI < 0.02. EKG: sinus tachycardia initially, otherwise normal; HR generally WNL presently. Stress treadmill MIBI 06/2016: no myocardial ischemia. Continue aggressive lipid control (on atorvastatin); strong family hx CAD. Code(s): R07.89 - OTHER CHEST PAIN
[2017-12-24 07:03] LABS: ANION GAP 6 (8-16); BLOOD UREA NITROGEN 38 mg/dL (7-18); CALCIUM 10.3 mg/dL (8.5-10.1); CHLORIDE 102 mmol/L (98-107); CO2 31 mmol/L (21-32); CREATININE 1.4 mg/dL (0.55-1.02); GLUCOSE,RANDOM 154 mg/dL (74-106); MAGNESIUM 1.9 mg/dL (1.8-2.4); PHOSPHOROUS 4.2 mg/dL (2.5-4.9); POTASSIUM 4.7 mmol/L (3.5-5.1); SODIUM 139 mmol/L (136-145)
[2017-12-24] MEDS: ALBUTEROL SO4 2.5/IPRATROPIUM 0.5 INH SOL 3 ML VIAL.NEB. NEB SCH ×4 (07:51→20:50)
[2017-12-24] MEDS ORDERED: PT OWN MED DRAWER 7, Y5N ONE (08:55)
[2017-12-24] MEDS: ASPIRIN 81 MG CHEWABLE TABLETS PO SCH (09:12)
[2017-12-24] MEDS: methylPREDNISolone NA SUCC 40 MG/1 ML VIAL IVPUSH SCH ×2 (09:13→21:11)
[2017-12-24] MEDS: SENNOSIDES/DOCUSATE COMBO (SENNA PLUS) TABLET (UD) PO SCH (09:13)
[2017-12-24] MEDS: GABAPENTIN 300 MG CAPSULE (FP) PO SCH ×2 (09:14→21:11)
--- NOTE | 2017-12-24 11:11 | PN ---
Progress Note, Physician History of Present Illness: PULMONARY ALERT,FEELING BETTER,DYSPNEA IMPROVING - Current Medication List Current Medications: Active Medications Acetaminophen (Tylenol -) 650 mg PO Q6H PRN PRN Reason: FEVER Last Admin: 12/23/17 05:52 Dose: 650 mg Albuterol/Ipratropium (Duoneb -) 1 amp NEB Q4H PRN PRN Reason: SHORTNESS OF BREATH Last Admin: 12/23/17 18:37 Dose: 1 amp Albuterol/Ipratropium (Duoneb -) 1 amp NEB RQID [facility] Last Admin: 12/24/17 07:51 Dose: 1 amp Aspirin (Asa -) 81 mg PO DAILY [facility] Last Admin: 12/24/17 09:12 Dose: 81 mg Atorvastatin Calcium (Lipitor -) 10 mg PO HS [facility] Last Admin: 12/23/17 21:47 Dose: 10 mg Gabapentin (Neurontin -) 300 mg PO BID [facility] Last Admin: 12/24/17 09:14 Dose: 300 mg Methotrexate (Mexate -) 7.5 mg PO Th@1000 [facility] Last Admin: 12/23/17 09:36 Dose: 7.5 mg Methylprednisolone Sodium Succinate (Solu-Medrol -) 40 mg IVPUSH BID [facility] Last Admin: 12/24/17 09:13 Dose: 40 mg Metoprolol Succinate (Toprol Xl -) 50 mg PO HS [facility] Last Admin: 12/23/17 21:47 Dose: 50 mg Metoprolol Succinate (Toprol Xl -) 100 mg PO AM [facility] Last Admin: 12/24/17 06:37 Dose: 100 mg Nortriptyline HCl (Pamelor -) 20 mg PO [facility] Last Admin: 12/23/17 21:47 Dose: 20 mg Senna/Docusate Sodium (Pericolace -) 1 tablet PO DAILY [facility] Last Admin: 12/24/17 09:13 Dose: 1 tablet - Objective Vital Signs: Vital Signs Temperature 97.7 F 12/23/17 21:00 Pulse Rate 100 H 12/23/17 21:00 Respiratory Rate 18 12/23/17 21:00 Blood Pressure 129/67 12/23/17 21:00 O2 Sat by Pulse Oximetry (%) 98 12/23/17 21:00 Constitutional: Yes: Well Nourished, Calm Eyes: Yes: WNL HENT: Yes: WNL Neck: Yes: WNL Cardiovascular: Yes: Regular Rate and Rhythm, S1, S2 Respiratory: Yes: Wheezes (FEW SCATTERED LARRY WHEEZES) Gastrointestinal: Yes: Normal Bowel Sounds, Soft Extremities: Yes: WNL Edema: No Labs: CBC, BMP 12/23/17 05:30 12/24/17 05:30 Problem List - Problems (1) Acute hypoxemic respiratory failure Code(s): J96.01 - ACUTE RESPIRATORY FAILURE WITH HYPOXIA (2) Acute kidney failure Code(s): N17.9 - ACUTE KIDNEY FAILURE, UNSPECIFIED (3) HTN (hypertension) Code(s): I10 - ESSENTIAL (PRIMARY) HYPERTENSION (4) Shortness of breath Code(s): R06.02 - SHORTNESS OF BREATH (5) Diabetes mellitus treated with oral medication Code(s): E11.9 - TYPE 2 DIABETES MELLITUS WITHOUT COMPLICATIONS (6) Rheumatoid arthritis Code(s): M06.9 - RHEUMATOID ARTHRITIS, UNSPECIFIED Assessment/Plan IMP ACUTE HYPOXEMIC RESPIRATORY FAILURE IMPROVING DYSPNEA ASTHMA ACUTE KIDNEY INJURY HTN RA ANEMIA PLAN IV STEROIDS SAME DOSE INHALED BRONCHODILATORS O2 MONITOR H+H MONITOR LYTES,RENAL FUNCTION PFTS OUTPATIENT DR PAREDES Problem List - Problems (1) Acute hypoxemic respiratory failure Code(s): J96.01 - ACUTE RESPIRATORY FAILURE WITH HYPOXIA (2) Acute kidney failure Code(s): N17.9 - ACUTE KIDNEY FAILURE, UNSPECIFIED (3) HTN (hypertension) Code(s): I10 - ESSENTIAL (PRIMARY) HYPERTENSION (4) Shortness of breath Code(s): R06.02 - SHORTNESS OF BREATH (5) Diabetes mellitus treated with oral medication Code(s): E11.9 - TYPE 2 DIABETES MELLITUS WITHOUT COMPLICATIONS (6) Rheumatoid arthritis Code(s): M06.9 - RHEUMATOID ARTHRITIS, UNSPECIFIED
--- NOTE | 2017-12-24 12:17 | PN ---
Progress Note, Physician - Current Medication List Current Medications: Active Medications Acetaminophen (Tylenol -) 650 mg PO Q6H PRN PRN Reason: FEVER Last Admin: 12/23/17 05:52 Dose: 650 mg Albuterol/Ipratropium (Duoneb -) 1 amp NEB Q4H PRN PRN Reason: SHORTNESS OF BREATH Last Admin: 12/23/17 18:37 Dose: 1 amp Albuterol/Ipratropium (Duoneb -) 1 amp NEB RQID [facility] Last Admin: 12/24/17 11:20 Dose: 1 amp Aspirin (Asa -) 81 mg PO DAILY [facility] Last Admin: 12/24/17 09:12 Dose: 81 mg Atorvastatin Calcium (Lipitor -) 10 mg PO HS [facility] Last Admin: 12/23/17 21:47 Dose: 10 mg Gabapentin (Neurontin -) 300 mg PO BID [facility] Last Admin: 12/24/17 09:14 Dose: 300 mg Methotrexate (Mexate -) 7.5 mg PO Th@1000 [facility] Last Admin: 12/23/17 09:36 Dose: 7.5 mg Methylprednisolone Sodium Succinate (Solu-Medrol -) 40 mg IVPUSH BID [facility] Last Admin: 12/24/17 09:13 Dose: 40 mg Metoprolol Succinate (Toprol Xl -) 50 mg PO HS [facility] Last Admin: 12/23/17 21:47 Dose: 50 mg Metoprolol Succinate (Toprol Xl -) 100 mg PO AM [facility] Last Admin: 12/24/17 06:37 Dose: 100 mg Nortriptyline HCl (Pamelor -) 20 mg PO [facility] Last Admin: 12/23/17 21:47 Dose: 20 mg Senna/Docusate Sodium (Pericolace -) 1 tablet PO DAILY [facility] Last Admin: 12/24/17 09:13 Dose: 1 tablet - Objective Vital Signs: Vital Signs Temperature 97.7 F 12/23/17 21:00 Pulse Rate 132 H 12/24/17 11:49 Respiratory Rate 18 12/23/17 21:00 Blood Pressure 129/67 12/23/17 21:00 O2 Sat by Pulse Oximetry (%) 96 12/24/17 11:49 Constitutional: Yes: No Distress HENT: Yes: Atraumatic Neck: Yes: Supple Cardiovascular: Yes: Regular Rate and Rhythm Respiratory: Yes: Rales (at bases) Gastrointestinal: Yes: Normal Bowel Sounds Extremities: Yes: WNL Neurological: Yes: Alert, Oriented Labs: CBC, BMP 12/23/17 05:30 12/24/17 05:30 INR, PTT INR 1.16 (0.82-1.09) H 12/20/17 16:05 Problem List - Problems (1) HTN (hypertension) Assessment/Plan: on meds monitor Code(s): I10 - ESSENTIAL (PRIMARY) HYPERTENSION (2) Acute kidney failure Assessment/Plan: improving Code(s): N17.9 - ACUTE KIDNEY FAILURE, UNSPECIFIED (3) Shortness of breath Assessment/Plan: on meds stable steroids Code(s): R06.02 - SHORTNESS OF BREATH (4) Diabetes mellitus treated with oral medication Code(s): E11.9 - TYPE 2 DIABETES MELLITUS WITHOUT COMPLICATIONS (5) Diabetic neuropathy Code(s): E11.40 - TYPE 2 DIABETES MELLITUS WITH DIABETIC NEUROPATHY, UNSP (6) Rheumatoid arteritis Code(s): I00 - RHEUMATIC FEVER WITHOUT HEART INVOLVEMENT
--- NOTE | 2017-12-24 12:55 | PN ---
Progress Note, Physician History of Present Illness: The patient is a 72 year old female with a past medical history of HTN, diabetes , tacyhcardia, chronic arthritis who presents to ED today for 3 days of SOB with associated with diaphoresis, nausea, vomiting, diarrhea, headache, lightheadedness, and cough. Pt states she had one episode of chest pain yesterday which lasted 1-2 seconds, located to her left chest, which resolved on its own. She reprots her lisonpril was recently decreased from 20 mg to 10 mg for hypotension. She reports her last echo was in November and normal. She states she had an endoscopy [address] Vela. Allergies: Codeine PCP: Dr. Lisa Quigley Cards: Dr. Nj - Current Medication List Current Medications: Active Medications Acetaminophen (Tylenol -) 650 mg PO Q6H PRN PRN Reason: FEVER Last Admin: 12/23/17 05:52 Dose: 650 mg Albuterol/Ipratropium (Duoneb -) 1 amp NEB Q4H PRN PRN Reason: SHORTNESS OF BREATH Last Admin: 12/23/17 18:37 Dose: 1 amp Albuterol/Ipratropium (Duoneb -) 1 amp NEB RQID [facility] Last Admin: 12/24/17 11:20 Dose: 1 amp Aspirin (Asa -) 81 mg PO DAILY [facility] Last Admin: 12/24/17 09:12 Dose: 81 mg Atorvastatin Calcium (Lipitor -) 10 mg PO [facility] Last Admin: 12/23/17 21:47 Dose: 10 mg Gabapentin (Neurontin -) 300 mg PO BID [facility] Last Admin: 12/24/17 09:14 Dose: 300 mg Methotrexate (Mexate -) 7.5 mg PO Th@1000 [facility] Last Admin: 12/23/17 09:36 Dose: 7.5 mg Methylprednisolone Sodium Succinate (Solu-Medrol -) 40 mg IVPUSH BID [facility] Last Admin: 12/24/17 09:13 Dose: 40 mg Metoprolol Succinate (Toprol Xl -) 50 mg PO [facility] Last Admin: 12/23/17 21:47 Dose: 50 mg Metoprolol Succinate (Toprol Xl -) 100 mg PO AM [facility] Last Admin: 12/24/17 06:37 Dose: 100 mg Nortriptyline HCl (Pamelor -) 20 mg PO [facility] Last Admin: 12/23/17 21:47 Dose: 20 mg Senna/Docusate Sodium (Pericolace -) 1 tablet PO DAILY [facility] Last Admin: 12/24/17 09:13 Dose: 1 tablet - Objective Vital Signs: Vital Signs Temperature 98.2 F 12/24/17 10:00 Pulse Rate 132 H 12/24/17 11:49 Respiratory Rate 20 12/24/17 10:00 Blood Pressure 113/70 12/24/17 10:00 O2 Sat by Pulse Oximetry (%) 96 12/24/17 11:49 Eyes: Yes: WNL, Conjunctiva Clear, EOM Intact HENT: Yes: WNL, Atraumatic, Normocephalic Neck: Yes: WNL, Supple, Trachea Midline Cardiovascular: Yes: Tachycardia Respiratory: Yes: WNL, Regular, CTA Bilaterally Gastrointestinal: Yes: WNL, Normal Bowel Sounds Genitourinary: Yes: WNL Musculoskeletal: Yes: WNL Extremities: Yes: WNL Edema: No Integumentary: Yes: WNL Neurological: Yes: WNL, Alert, Oriented ...Motor Strength: WNL Psychiatric: Yes: WNL Labs: CBC, BMP 12/23/17 05:30 12/24/17 05:30 INR, PTT INR 1.16 (0.82-1.09) H 12/20/17 16:05 Problem List - Problems (1) Acute kidney failure Code(s): N17.9 - ACUTE KIDNEY FAILURE, UNSPECIFIED (2) Shortness of breath Code(s): R06.02 - SHORTNESS OF BREATH (3) Sebaceous cyst Code(s): L72.3 - SEBACEOUS CYST (4) Carpal tunnel syndrome Code(s): G56.00 - CARPAL TUNNEL SYNDROME, UNSPECIFIED UPPER LIMB (5) Chronic pain Code(s): G89.29 - OTHER CHRONIC PAIN (6) Chronic renal insufficiency, stage III (moderate) Code(s): N18.3 - CHRONIC KIDNEY DISEASE, STAGE 3 (MODERATE) (7) Diabetes mellitus treated with oral medication Code(s): E11.9 - TYPE 2 DIABETES MELLITUS WITHOUT COMPLICATIONS (8) Diabetic neuropathy Code(s): E11.40 - TYPE 2 DIABETES MELLITUS WITH DIABETIC NEUROPATHY, UNSP (9) Dry eyes Code(s): H04.123 - DRY EYE SYNDROME OF BILATERAL LACRIMAL GLANDS (10) Glaucoma Code(s): H40.9 - UNSPECIFIED GLAUCOMA (11) Osteoarthritis Code(s): M19.90 - UNSPECIFIED OSTEOARTHRITIS, UNSPECIFIED SITE (12) PVD (peripheral vascular disease) with claudication Code(s): I73.9 - PERIPHERAL VASCULAR DISEASE, UNSPECIFIED (13) Rheumatoid arteritis Code(s): I00 - RHEUMATIC FEVER WITHOUT HEART INVOLVEMENT Assessment/Plan Problems (1) Acute hypoxemic respiratory failure Code(s): J96.01 - ACUTE RESPIRATORY FAILURE WITH HYPOXIA (2) Acute kidney failure Assessment/Plan: with hydration, pt has improving BUn/Cr; f/u Is and Os. Code(s): N17.9 - ACUTE KIDNEY FAILURE, UNSPECIFIED (3) HTN (hypertension) Code(s): I10 - ESSENTIAL (PRIMARY) HYPERTENSION (4) Rheumatoid arthritis Assessment/Plan: on methotrexate. Code(s): M06.9 - RHEUMATOID ARTHRITIS, UNSPECIFIED (5) Diabetes mellitus treated with oral medication Code(s): E11.9 - TYPE 2 DIABETES MELLITUS WITHOUT COMPLICATIONS (6) Osteoarthritis Code(s): M19.90 - UNSPECIFIED OSTEOARTHRITIS, UNSPECIFIED SITE (7) Hyperlipidemia Assessment/Plan: on statin; f/u lipid profile and keep LDL < 70 mg/dl (strong family hx CAD); check TSH. Code(s): E78.5 - HYPERLIPIDEMIA, UNSPECIFIED (8) Atypical chest pain Assessment/Plan: TNI < 0.02. EKG: sinus tachycardia initially, otherwise normal; HR generally WNL presently. Stress treadmill MIBI 06/2016: no myocardial ischemia. Continue aggressive lipid control (on atorvastatin); strong family hx CAD. Code(s): R07.89 - OTHER CHEST PAIN
--- NOTE | 2017-12-24 16:26 | PN ---
Progress Note (short form) - Note Progress Note: Renal follow up for GIL on CKD Pt seen and examined feels better overall, able to ambulate without O2 making urine was give IV lasix last night for acute sob Vital Signs Temperature 97.6 F 12/24/17 14:23 Pulse Rate 111 H 12/24/17 14:23 Respiratory Rate 18 12/24/17 14:23 Blood Pressure 109/81 12/24/17 14:23 O2 Sat by Pulse Oximetry (%) 96 12/24/17 11:49 Intake & Output 12/21/17 12/22/17 12/23/17 12/24/17 23:59 23:59 23:59 23:59 Intake Total 2095 120 450 Balance 5 120 450 Weight 77.564 kg NAD MMM CTA No LE edema CBC, BMP 12/23/17 05:30 12/23/17 05:30 Current Medications Acetaminophen (Tylenol -) 650 mg PO Q6H PRN PRN Reason: FEVER Last Admin: 12/23/17 05:52 Dose: 650 mg Albuterol/Ipratropium (Duoneb -) 1 amp NEB Q4H PRN PRN Reason: SHORTNESS OF BREATH Last Admin: 12/23/17 18:37 Dose: 1 amp Albuterol/Ipratropium (Duoneb -) 1 amp NEB RQID [facility] Last Admin: 12/23/17 16:13 Dose: 1 amp Aspirin (Asa -) 81 mg PO DAILY [facility] Last Admin: 12/23/17 09:36 Dose: 81 mg Atorvastatin Calcium (Lipitor -) 10 mg PO HS [facility] Last Admin: 12/22/17 21:26 Dose: 10 mg Gabapentin (Neurontin -) 300 mg PO BID [facility] Last Admin: 12/23/17 09:36 Dose: 300 mg Methotrexate (Mexate -) 7.5 mg PO Th@1000 [facility] Last Admin: 12/23/17 09:36 Dose: 7.5 mg Methylprednisolone Sodium Succinate (Solu-Medrol -) 40 mg IVPUSH BID [facility] Metoprolol Succinate (Toprol Xl -) 50 mg PO HS [facility] Last Admin: 12/22/17 21:26 Dose: 50 mg Metoprolol Succinate (Toprol Xl -) 100 mg PO AM [facility] Last Admin: 12/23/17 06:07 Dose: 100 mg Nortriptyline HCl (Pamelor -) 20 mg PO HS [facility] Last Admin: 12/22/17 21:26 Dose: 20 mg Senna/Docusate Sodium (Pericolace -) 1 tablet PO DAILY [facility] Last Admin: 12/23/17 09:36 Dose: 1 tablet 72 year old woman with PMhx of CKD Stage 3, Hypertension, DM, Arthritis who presented with SOB and admitted hypoxic respiratory failure. #GIL on CKD #CKD (baseline Cr 1.1) #SOB/hypoxic respiratory failure #Anemia Renal function slightly worse today, related to IV diuresis from yesterday BP stable, no nephrotoxin exposure would trend BUN/Cr one more day oral intake as tolerated contiue to taper steroids as per pulmonary Christian Goldman DO
[2017-12-24] MEDS: ATORVASTATIN CA 10 MG TABLET (FP) PO SCH (21:11)
[2017-12-24] MEDS: NORTRIPTYLINE HCL 10 MG CAPSULE PO SCH (21:49)
[2017-12-25] MEDS: ALBUTEROL SO4 2.5/IPRATROPIUM 0.5 INH SOL 3 ML VIAL.NEB. NEB SCH ×2 (08:05→12:01)
[2017-12-25] MEDS ORDERED: PT OWN MED DRAWER 7, Y5N ONE ×2 (08:19→22:02)
[2017-12-25] MEDS: ASPIRIN 81 MG CHEWABLE TABLETS PO SCH ×2 (08:43→09:18)
[2017-12-25] MEDS: GABAPENTIN 300 MG CAPSULE (FP) PO SCH ×3 (08:43→22:03)
[2017-12-25] MEDS: SENNOSIDES/DOCUSATE COMBO (SENNA PLUS) TABLET (UD) PO SCH ×2 (08:43→09:18)
[2017-12-25] MEDS: methylPREDNISolone NA SUCC 40 MG/1 ML VIAL IVPUSH SCH ×2 (08:44→09:18)
[2017-12-25 09:17] LABS: ANION GAP 10 (8-16); BLOOD UREA NITROGEN 39 mg/dL (7-18); CALCIUM 9.7 mg/dL (8.5-10.1); CHLORIDE 104 mmol/L (98-107); CO2 27 mmol/L (21-32); CREATININE 1.2 mg/dL (0.55-1.02); GLUCOSE,RANDOM 133 mg/dL (74-106); POTASSIUM 4.8 mmol/L (3.5-5.1); SODIUM 141 mmol/L (136-145)
--- NOTE | 2017-12-25 11:50 | PN ---
Progress Note (short form) - Note Progress Note: Renal follow up for GIL on CKD Pt seen and examined feels better no sob at this time no chest pain, abd pain, N/V/D. no fever or chills making urine on O2 as needed Vital Signs Temperature 97.9 F 12/25/17 05:46 Pulse Rate 82 12/25/17 05:46 Respiratory Rate 18 12/25/17 05:46 Blood Pressure 90/52 12/25/17 05:46 O2 Sat by Pulse Oximetry (%) 96 12/24/17 11:49 Intake & Output 12/22/17 12/23/17 12/24/17 12/25/17 23:59 23:59 23:59 23:59 Intake Total 120 690 Balance 120 690 NAD MMM CTA No LE edema CBC, BMP 12/23/17 05:30 12/25/17 06:10 Current Medications Acetaminophen (Tylenol -) 650 mg PO Q6H PRN PRN Reason: FEVER Last Admin: 12/23/17 05:52 Dose: 650 mg Albuterol/Ipratropium (Duoneb -) 1 amp NEB Q4H PRN PRN Reason: SHORTNESS OF BREATH Last Admin: 12/23/17 18:37 Dose: 1 amp Albuterol/Ipratropium (Duoneb -) 1 amp NEB RQID [facility] Last Admin: 12/25/17 08:05 Dose: 1 amp Aspirin (Asa -) 81 mg PO DAILY [facility] Last Admin: 12/25/17 09:18 Dose: Not Given Atorvastatin Calcium (Lipitor -) 10 mg PO HS [facility] Last Admin: 12/24/17 21:11 Dose: 10 mg Gabapentin (Neurontin -) 300 mg PO BID [facility] Last Admin: 12/25/17 09:18 Dose: Not Given Methotrexate (Mexate -) 7.5 mg PO Th@1000 [facility] Last Admin: 12/23/17 09:36 Dose: 7.5 mg Methylprednisolone Sodium Succinate (Solu-Medrol -) 40 mg IVPUSH BID [facility] Last Admin: 12/25/17 09:18 Dose: Not Given Metoprolol Succinate (Toprol Xl -) 50 mg PO HS [facility] Last Admin: 12/24/17 21:11 Dose: 50 mg Metoprolol Succinate (Toprol Xl -) 100 mg PO AM [facility] Last Admin: 12/25/17 08:44 Dose: 100 mg Nortriptyline HCl (Pamelor -) 20 mg PO HS [facility] Last Admin: 12/24/17 21:49 Dose: Not Given Senna/Docusate Sodium (Pericolace -) 1 tablet PO DAILY [facility] Last Admin: 12/25/17 09:18 Dose: Not Given 72 year old woman with PMhx of CKD Stage 3, Hypertension, DM, Arthritis who presented with SOB and admitted hypoxic respiratory failure. #GIL on CKD #CKD (baseline Cr 1.1) #SOB/hypoxic respiratory failure #Anemia Renal function now improved back to baseline volume status seems good, can consider low dose diuretics (i.e Lasix 20mg Daily ) if renal function remains stable Trend renal function and electrolytes Taper steroids as per Pulmonary Monitor O2 check CBC and iron studies Christian Goldman DO
--- NOTE | 2017-12-25 12:13 | PN ---
Progress Note, Physician - Current Medication List Current Medications: Active Medications Acetaminophen (Tylenol -) 650 mg PO Q6H PRN PRN Reason: FEVER Last Admin: 12/23/17 05:52 Dose: 650 mg Albuterol/Ipratropium (Duoneb -) 1 amp NEB Q4H PRN PRN Reason: SHORTNESS OF BREATH Last Admin: 12/23/17 18:37 Dose: 1 amp Albuterol/Ipratropium (Duoneb -) 1 amp NEB RQID [facility] Last Admin: 12/25/17 08:05 Dose: 1 amp Aspirin (Asa -) 81 mg PO DAILY [facility] Last Admin: 12/25/17 09:18 Dose: Not Given Atorvastatin Calcium (Lipitor -) 10 mg PO HS [facility] Last Admin: 12/24/17 21:11 Dose: 10 mg Gabapentin (Neurontin -) 300 mg PO BID [facility] Last Admin: 12/25/17 09:18 Dose: Not Given Methotrexate (Mexate -) 7.5 mg PO Th@1000 [facility] Last Admin: 12/23/17 09:36 Dose: 7.5 mg Methylprednisolone Sodium Succinate (Solu-Medrol -) 40 mg IVPUSH BID [facility] Last Admin: 12/25/17 09:18 Dose: Not Given Metoprolol Succinate (Toprol Xl -) 50 mg PO HS [facility] Last Admin: 12/24/17 21:11 Dose: 50 mg Metoprolol Succinate (Toprol Xl -) 100 mg PO AM [facility] Last Admin: 12/25/17 08:44 Dose: 100 mg Nortriptyline HCl (Pamelor -) 20 mg PO [facility] Last Admin: 12/24/17 21:49 Dose: Not Given Senna/Docusate Sodium (Pericolace -) 1 tablet PO DAILY [facility] Last Admin: 12/25/17 09:18 Dose: Not Given - Objective Vital Signs: Vital Signs Temperature 97.9 F 12/25/17 05:46 Pulse Rate 82 12/25/17 05:46 Respiratory Rate 18 12/25/17 05:46 Blood Pressure 90/52 12/25/17 05:46 O2 Sat by Pulse Oximetry (%) 96 12/24/17 11:49 Constitutional: Yes: No Distress HENT: Yes: Atraumatic Neck: Yes: Supple Cardiovascular: Yes: Regular Rate and Rhythm Gastrointestinal: Yes: Normal Bowel Sounds Extremities: Yes: WNL Edema: No Neurological: Yes: Alert, Oriented Labs: CBC, BMP 12/23/17 05:30 12/25/17 06:10 INR, PTT INR 1.16 (0.82-1.09) H 12/20/17 16:05 Problem List - Problems (1) HTN (hypertension) Assessment/Plan: on meds monitor Code(s): I10 - ESSENTIAL (PRIMARY) HYPERTENSION (2) Acute kidney failure Assessment/Plan: improving Code(s): N17.9 - ACUTE KIDNEY FAILURE, UNSPECIFIED (3) Shortness of breath Code(s): R06.02 - SHORTNESS OF BREATH (4) Diabetes mellitus treated with oral medication Code(s): E11.9 - TYPE 2 DIABETES MELLITUS WITHOUT COMPLICATIONS (5) Diabetic neuropathy Code(s): E11.40 - TYPE 2 DIABETES MELLITUS WITH DIABETIC NEUROPATHY, UNSP (6) Rheumatoid arteritis Code(s): I00 - RHEUMATIC FEVER WITHOUT HEART INVOLVEMENT (7) COPD (chronic obstructive pulmonary disease) Assessment/Plan: on steroids [facility] pulmonary on board Code(s): J44.9 - CHRONIC OBSTRUCTIVE PULMONARY DISEASE, UNSPECIFIED
--- NOTE | 2017-12-25 12:24 | PN ---
Progress Note (short form) - Note Progress Note: PULMONARY States breathing is improving. Less cough and wheezing. Vital Signs Period Temp Pulse Resp BP Sys/Lopez Pulse Ox Last 24 Hr 97.6 F-98.5 F 82-126 18-19 90-122/52-81 Gen: NAD at rest Heart: RRR Lung: scattered wheezes, rales Abd: soft, nontender Ext: no edema CBC, BMP 12/23/17 05:30 12/25/17 06:10 Active Medications Acetaminophen (Tylenol -) 650 mg PO Q6H PRN PRN Reason: FEVER Last Admin: 12/23/17 05:52 Dose: 650 mg Albuterol/Ipratropium (Duoneb -) 1 amp NEB Q4H PRN PRN Reason: SHORTNESS OF BREATH Last Admin: 12/23/17 18:37 Dose: 1 amp Aspirin (Asa -) 81 mg PO DAILY [facility] Last Admin: 12/25/17 09:18 Dose: Not Given Atorvastatin Calcium (Lipitor -) 10 mg PO [facility] Last Admin: 12/24/17 21:11 Dose: 10 mg Gabapentin (Neurontin -) 300 mg PO BID [facility] Last Admin: 12/25/17 09:18 Dose: Not Given Methotrexate (Mexate -) 7.5 mg PO Th@1000 [facility] Last Admin: 12/23/17 09:36 Dose: 7.5 mg Metoprolol Succinate (Toprol Xl -) 50 mg PO [facility] Last Admin: 12/24/17 21:11 Dose: 50 mg Metoprolol Succinate (Toprol Xl -) 100 mg PO AM [facility] Last Admin: 12/25/17 08:44 Dose: 100 mg Nortriptyline HCl (Pamelor -) 20 mg PO [facility] Last Admin: 12/24/17 21:49 Dose: Not Given Prednisone (Deltasone -) 40 mg PO DAILY [facility] Senna/Docusate Sodium (Pericolace -) 1 tablet PO DAILY [facility] Last Admin: 12/25/17 09:18 Dose: Not Given A/P Acute Asthma Exacerbation Acute Kidney Injury HTN RA Anemia - prednisone taper - inhaled bronchodilators - O2 to keep SpO2 >90% - DVT prophylaxis
[2017-12-25] MEDS: predniSONE 20 MG TABLET (UD) PO SCH (13:17)
[2017-12-25] MEDS: ATORVASTATIN CA 10 MG TABLET (FP) PO SCH (22:04)
[2017-12-25] MEDS: NORTRIPTYLINE HCL 10 MG CAPSULE PO SCH (22:05)
[2017-12-26 06:45] VITALS: BP 111/65; PULSE 84; TEMP 98.1
[2017-12-26 07:49] LABS: HEMATOCRIT 27.7 % (32.4-45.2); HEMOGLOBIN 9.3 GM/dL (10.7-15.3); MCH 34.2 pg (25.7-33.7); MCHC 33.7 g/dl (32.0-36.0); MEAN CELL VOLUME 101.4 fl (80-96); MEAN PLT VOLUME 8.1 fl (7.5-11.1); MONO % 3.6 % (3.8-10.2); NEUT % 76.4 % (42.8-82.8); PLATELET COUNT 275 K/MM3 (134-434); RBC 2.73 M/mm3 (3.60-5.2); RDW 16.7 % (11.6-15.6); WHITE BLOOD COUNT 6.6 K/mm3 (4.0-10.0)
[2017-12-26 08:36] LABS: CHLORIDE 103 mmol/L (98-107); POTASSIUM 4.3 mmol/L (3.5-5.1); SODIUM 139 mmol/L (136-145)
[2017-12-26 08:40] LABS: ANION GAP 5 (8-16); BLOOD UREA NITROGEN 38 mg/dL (7-18); CALCIUM 9.5 mg/dL (8.5-10.1); CO2 31 mmol/L (21-32); CREATININE 1.1 mg/dL (0.55-1.02); GLUCOSE,RANDOM 95 mg/dL (74-106); MAGNESIUM 2.1 mg/dL (1.8-2.4); PHOSPHOROUS 3.2 mg/dL (2.5-4.9)
[2017-12-26] MEDS: ALBUTEROL SO4 2.5/IPRATROPIUM 0.5 INH SOL 3 ML VIAL.NEB. NEB PRN (09:00)
[2017-12-26] MEDS: GABAPENTIN 300 MG CAPSULE (FP) PO SCH (09:34)
[2017-12-26] MEDS: ASPIRIN 81 MG CHEWABLE TABLETS PO SCH (09:34)
[2017-12-26] MEDS: predniSONE 20 MG TABLET (UD) PO SCH (09:34)
[2017-12-26] MEDS: SENNOSIDES/DOCUSATE COMBO (SENNA PLUS) TABLET (UD) PO SCH (09:34)
--- NOTE | 2017-12-26 11:13 | PN ---
Progress Note (short form) - Note Progress Note: Renal follow up for GIL on CKD Pt seen and examined feels good ambulating w/o O2 no chest pain, abd pain, N/V/D, Fever or chills had some heart burn this am, resolved with food Vital Signs Temperature 98.1 F 12/26/17 06:00 Pulse Rate 84 12/26/17 06:00 Respiratory Rate 20 12/26/17 09:00 Blood Pressure 111/65 12/26/17 06:00 O2 Sat by Pulse Oximetry (%) 97 12/26/17 09:00 Intake & Output 12/23/17 12/24/17 12/25/17 12/26/17 23:59 23:59 23:59 23:59 Intake Total 120 690 620 Balance 120 690 620 NAD MMM CTA No LE edema CBC, BMP 12/26/17 06:50 12/26/17 06:50 Laboratory Tests 12/26/17 06:50 Calcium 9.5 Phosphorus 3.2 Magnesium 2.1 Current Medications Acetaminophen (Tylenol -) 650 mg PO Q6H PRN PRN Reason: FEVER Last Admin: 12/23/17 05:52 Dose: 650 mg Albuterol/Ipratropium (Duoneb -) 1 amp NEB Q4H PRN PRN Reason: SHORTNESS OF BREATH Last Admin: 12/26/17 09:00 Dose: 1 amp Aspirin (Asa -) 81 mg PO DAILY [facility] Last Admin: 12/26/17 09:34 Dose: 81 mg Atorvastatin Calcium (Lipitor -) 10 mg PO HS [facility] Last Admin: 12/25/17 22:04 Dose: 10 mg Gabapentin (Neurontin -) 300 mg PO BID [facility] Last Admin: 12/26/17 09:34 Dose: 300 mg Methotrexate (Mexate -) 7.5 mg PO Th@1000 [facility] Last Admin: 12/23/17 09:36 Dose: 7.5 mg Metoprolol Succinate (Toprol Xl -) 50 mg PO HS [facility] Last Admin: 12/25/17 22:03 Dose: 50 mg Metoprolol Succinate (Toprol Xl -) 100 mg PO AM [facility] Last Admin: 12/26/17 06:09 Dose: 100 mg Nortriptyline HCl (Pamelor -) 20 mg PO HS [facility] Last Admin: 12/25/17 22:05 Dose: 20 mg Prednisone (Deltasone -) 40 mg PO DAILY [facility] Last Admin: 12/26/17 09:34 Dose: 40 mg Senna/Docusate Sodium (Pericolace -) 1 tablet PO DAILY [facility] Last Admin: 12/26/17 09:34 Dose: 1 tablet 72 year old woman with PMhx of CKD Stage 3, Hypertension, DM, Arthritis who presented with SOB and admitted hypoxic respiratory failure. #GIL on CKD #CKD (baseline Cr 1.1) #SOB/hypoxic respiratory failure #Anemia Renal function stable at this time pt appears evolemic, will defer starting diuretics stable from renal perspective for discharge with outpatient follow up steroid taper as per pulmonary no acute indication for transfusion will add iron studies to todays labs Christian Goldman DO
--- NOTE | 2017-12-26 11:26 | DS ---
Physical Examination Vital Signs: Vital Signs Temperature 98.1 F 12/26/17 06:00 Pulse Rate 84 12/26/17 06:00 Respiratory Rate 20 12/26/17 09:00 Blood Pressure 111/65 12/26/17 06:00 O2 Sat by Pulse Oximetry (%) 97 12/26/17 09:00 Constitutional: Yes: No Distress HENT: Yes: Atraumatic Neck: Yes: Supple Cardiovascular: Yes: Regular Rate and Rhythm Respiratory: Yes: Rhonchi Gastrointestinal: Yes: Normal Bowel Sounds Extremities: Yes: WNL Edema: No Neurological: Yes: Alert, Oriented Labs: CBC, BMP 12/26/17 06:50 12/26/17 06:50 Discharge Summary Reason For Visit: ACUTE RENAL FAILURE; SHORTNESS OF BREATH Current Active Problems Acute hypoxemic respiratory failure (Acute) Acute kidney failure (Acute) Atypical chest pain (Acute) COPD (chronic obstructive pulmonary disease) (Acute) HTN (hypertension) (Acute) Hyperlipidemia (Acute) Rheumatoid arthritis (Acute) Shortness of breath (Acute) Condition: Stable - Instructions Referrals: Lisa Edgar MD [Primary Care Provider] - Disposition: HOME - Home Medications Comprehensive Discharge Medication List: Ambulatory Orders Aspirin [ASA -] 81 mg PO DAILY 05/18/16 Gabapentin [Neurontin -] 300 mg PO BID 05/18/16 Lisinopril [Prinivil] 20 mg PO DAILY 05/18/16 Metoprolol Succinate [Toprol XL -] 50 mg PO HS 05/18/16 Metoprolol Succinate [Toprol XL -] 100 mg PO AM 05/18/16 Nortriptyline HCl [Pamelor -] 20 mg PO HS 05/18/16 Simvastatin [Zocor -] 20 mg PO HS 05/18/16 Medical Marijuana [Medical Marijuana Oil] 1 inh IH BID 09/07/16 Cholecalciferol (Vitamin D3) [Vitamin D-400] 400 unit PO DAILY 11/09/16 Cyanocobalamin [Vitamin B12 -] 1,000 mcg PO DAILY 11/09/16 Methotrexate [Mexate -] 7.5 mg PO Q7D 11/09/16 Multivitamins [Multivit ([facility] Formulary)] 1 tab PO DAILY 11/09/16 [place]-3 Fatty Acids [Fish Oil] 3,400 mg PO DAILY 11/09/16 Sennosides/Docusate Sodium [Stool Softener-Laxative Tablet] 1 each PO DAILY 10/21 Acetaminophen [Tylenol .Extra-Strength -] 500 mg PO Q4H PRN #60 tablet 11/10/16 Infliximab [Remicade Infusion -] 100 mg IV ASDIR 12/20/17 predniSONE [Deltasone -] 40 mg PO DAILY #30 tablet 12/26/17 [facility]
[2017-12-26] MEDS ORDERED: predniSONE 20 MG TABLET (UD) PO SCH (11:57)
--- NOTE | 2017-12-26 11:57 | PN ---
Progress Note (short form) - Note Progress Note: PULMONARY States breathing is improving. Less cough and wheezing. Vital Signs Period Temp Pulse Resp BP Sys/Lopez Pulse Ox Last 24 Hr 97.3 F-98.2 F 79-108 20-20 105-120/46-81 97-97 Gen: NAD at rest Heart: RRR Lung: decreased breath sounds at the bases Abd: soft, nontender Ext: no edema CBC, BMP 12/26/17 06:50 12/26/17 06:50 Active Medications Acetaminophen (Tylenol -) 650 mg PO Q6H PRN PRN Reason: FEVER Last Admin: 12/23/17 05:52 Dose: 650 mg Albuterol/Ipratropium (Duoneb -) 1 amp NEB Q4H PRN PRN Reason: SHORTNESS OF BREATH Last Admin: 12/26/17 09:00 Dose: 1 amp Aspirin (Asa -) 81 mg PO DAILY [facility] Last Admin: 12/26/17 09:34 Dose: 81 mg Atorvastatin Calcium (Lipitor -) 10 mg PO [facility] Last Admin: 12/25/17 22:04 Dose: 10 mg Gabapentin (Neurontin -) 300 mg PO BID [facility] Last Admin: 12/26/17 09:34 Dose: 300 mg Methotrexate (Mexate -) 7.5 mg PO Th@1000 [facility] Last Admin: 12/23/17 09:36 Dose: 7.5 mg Metoprolol Succinate (Toprol Xl -) 50 mg PO HS [facility] Last Admin: 12/25/17 22:03 Dose: 50 mg Metoprolol Succinate (Toprol Xl -) 100 mg PO AM [facility] Last Admin: 12/26/17 06:09 Dose: 100 mg Nortriptyline HCl (Pamelor -) 20 mg PO HS [facility] Last Admin: 12/25/17 22:05 Dose: 20 mg Prednisone (Deltasone -) 40 mg PO DAILY [facility] Last Admin: 12/26/17 09:34 Dose: 40 mg Senna/Docusate Sodium (Pericolace -) 1 tablet PO DAILY [facility] Last Admin: 12/26/17 09:34 Dose: 1 tablet A/P Acute Asthma Exacerbation Acute Kidney Injury HTN RA Anemia - prednisone taper, will decrease to 30mg daily - inhaled bronchodilators - O2 to keep SpO2 >90% - DVT prophylaxis
[2017-12-27 08:21] LABS: SERUM IRON SATURATION 43 % (15-55); TOTAL IRON BINDING CAPACITY 295 ug/dL (250-450); UIBC 168 ug/dL (118-369)
== END 2017-12-26 13:19 | disposition home or self-care (01) | DRG 682 ==
LOC: JER 11:58 → JERBED 16:07 → J4W 18:15
PROVIDERS: ADMIT Internal Medicine; ATTEND Internal Medicine
DX: N17.9 Acute kidney failure, unspecified (principal); J96.01 Acute respiratory failure with hypoxia; J45.901 Unspecified asthma with (acute) exacerbation; I13.0 Hypertensive heart and chronic kidney disease with heart failure and stage 1 through stage 4 chronic kidney disease, or unspecified chronic kidney disease; I50.30 Unspecified diastolic (congestive) heart failure; E11.40 Type 2 diabetes mellitus with diabetic neuropathy, unspecified; M19.90 Unspecified osteoarthritis, unspecified site; I73.9 Peripheral vascular disease, unspecified; D64.9 Anemia, unspecified; R07.89 Other chest pain; N18.3 Chronic kidney disease, stage 3 (moderate); J44.9 Chronic obstructive pulmonary disease, unspecified; M06.9 Rheumatoid arthritis, unspecified; E78.5 Hyperlipidemia, unspecified
CPT/HCPCS: 36415; 36600; 71046-TC-FY; 71250-TC; 76775-TC; 76856-TC; 78582-TC; 80048; 80053; 81003; 81015; 82272; 82550; 82570; 82728; 82803; 82962; 83540; 83550; 83605; 83735; 83880; 84100; 84156; 84300; 84484; 85025; 85027; 85379; 85610; 85730; 93005; 93010; 93306-TC; 93970-TC; 94640; 94761; 99284-25; A9539; A9540; J1644; J7030; J7620; J8610

== ENCOUNTER 2018-07-14 11:10 | Emergency (ER) | payer OTHER ==
[2018-07-14 11:18] VITALS: BP 158/84; PULSE 84; TEMP 98.5; BMI 33.7
--- NOTE | 2018-07-14 12:20 | PDOC ---
History of Present Illness - General Chief Complaint: Weakness Stated Complaint: SLIP AND FALL Time Seen by Provider: 07/14/18 11:27 History Source: Patient Exam Limitations: No Limitations - History of Present Illness Initial Comments: 07/14/18 12:24 73-year-old female with history of total right knee replacement presents to the emergency room with complaints of frequent buckling of the right knee for the past month pain radiating to her right calf. Patient denies swelling, redness or deformity of the right knee. Patient states has lost approximately 60 pounds over the past few years due to diagnosis of prediabetes. Patient states had not follow-up with her orthopedist since the right knee discomfort but today while going to the store, she got out of the car and stood up, her knee buckled causing her to fall backward striking the occipital part of her scalp and right shoulder. Patient states no LOC but now has discomfort to her right shoulder and right knee. Timing/Duration: getting worse Severity: moderate Past History - Travel Traveled outside of the country in the last 30 days: No Close contact w/someone who was outside of country & ill: No - Past Medical History Allergies/Adverse Reactions: Allergies Allergy/AdvReac Type Severity Reaction Status Date / Time codeine AdvReac Verified 07/14/18 11:16 Home Medications: Ambulatory Orders Aspirin [ASA -] 81 mg PO DAILY 05/18/16 Gabapentin [Neurontin -] 300 mg PO BID 05/18/16 Lisinopril [Prinivil] 20 mg PO DAILY 05/18/16 Metoprolol Succinate [Toprol XL -] 50 mg PO HS 05/18/16 Metoprolol Succinate [Toprol XL -] 100 mg PO AM 05/18/16 Nortriptyline HCl [Pamelor -] 20 mg PO HS 05/18/16 Simvastatin [Zocor -] 20 mg PO HS 05/18/16 Medical Marijuana [Medical Marijuana Oil] 1 inh IH BID 09/07/16 Cholecalciferol (Vitamin D3) [Vitamin D-400] 400 unit PO DAILY 11/09/16 Cyanocobalamin [Vitamin B12 -] 1,000 mcg PO DAILY 11/09/16 Methotrexate [Mexate -] 7.5 mg PO Q7D 11/09/16 Multivitamins [Multivit ([facility] Formulary)] 1 tab PO DAILY 11/09/16 [place]-3 Fatty Acids [Fish Oil] 3,400 mg PO DAILY 11/09/16 Sennosides/Docusate Sodium [Stool Softener-Laxative Tablet] 1 each PO DAILY 10/21 Acetaminophen [Tylenol .Extra-Strength -] 500 mg PO Q4H PRN #60 tablet 11/10/16 Infliximab [Remicade Infusion -] 100 mg IV ASDIR 12/20/17 predniSONE [Deltasone -] 40 mg PO DAILY #30 tablet 12/26/17 Anemia: Yes Asthma: No Cancer: No Cardiac Disorders: No CVA: No COPD: No CHF: No Dementia: No Diabetes: Yes (on meds, with neuropathy) GI Disorders: No Disorders: No HTN: Yes Hypercholesterolemia: No Liver Disease: No Seizures: No Thyroid Disease: No Other medical history: walks with cane. - Surgical History Appendectomy: Yes Orthopedic Surgery: Yes (rt total knee replacement 2007; ) - Suicide/Smoking/Psychosocial Hx Smoking History: Never smoked Have you smoked in the past 12 months: No If you are a former smoker, when did you quit?: 30 years ago Information on smoking cessation initiated: No Hx Alcohol Use: No Drug/Substance Use Hx: No Substance Use Type: Marijuana Hx Substance Use Treatment: No (MEDICAL MARIJUANA FOR FEET PAIN) Patient Lives Alone: Yes Lives with/in: lives alone Review of Systems - Review of Systems Able to Perform ROS?: Yes Is the patient limited Lithuanian proficient: No Constitutional: No: Symptoms Reported HEENTM: No: Symptoms Reported Respiratory: No: Symptoms reported Cardiac (ROS): No: Symptoms Reported ABD/GI: No: Symptoms Reported : No: Symptoms Reported Musculoskeletal: Yes: Joint Pain (rt knee and right shoulder), Joint Stiffness Integumentary: Yes: Lumps (rt occipital) Neurological: No: Symptoms reported *Physical Exam - Vital Signs Last Vital Signs Temp Pulse Resp BP Pulse Ox 98.5 F 84 16 158/84 100 07/14/18 11:16 07/14/18 11:16 07/14/18 11:16 07/14/18 11:16 07/14/18 11:16 - Physical Exam General Appearance: Yes: Nourished, Appropriately Dressed. No: Apparent Distress Neck: positive: Supple Respiratory/Chest: positive: Lungs Clear, Normal Breath Sounds. negative: Chest Tender, Respiratory Distress, Accessory Muscle Use Cardiovascular: positive: Regular Rhythm, Regular Rate. negative: Murmur Gastrointestinal/Abdominal: positive: Soft. negative: Tenderness Musculoskeletal: negative: Vertebral Tenderness Extremity: positive: Normal Capillary Refill, Normal Range of Motion, Tender ( generalized over right knee), Calf Tenderness (mild upper right), Other (right shoulder with tenderness over the anterior aspect is no deformity no limited range of motion). negative: Pedal Edema, Swelling (negative Homans sign) Integumentary: positive: Ecchymosis (with small 3 cm hematoma over the right occipital area) Neurologic: positive: Normal Mood/Affect, Motor Strength 5/5 Moderate Sedation - Procedure Monitoring Vital Signs: Procedure Monitoring Vital Signs Temperature 98.5 F 07/14/18 11:16 Pulse Rate 84 07/14/18 11:16 Respiratory Rate 16 07/14/18 11:16 Blood Pressure 158/84 07/14/18 11:16 O2 Sat by Pulse Oximetry (%) 100 07/14/18 11:16 ED Treatment Course - RADIOLOGY Radiology Studies Ordered: Category Date Time Status CERVICAL SPINE CT W/O CONTR [CT] Stat CT Scan 07/14/18 11:[address] WITHOUT CONTRAST [CT] Stat CT Scan 07/14/18 11:38 Ordered KNEE 3 POS-RIGHT [RAD] Stat Radiology 07/14/18 11:38 Ordered SHOULDER-RIGHT [RAD] Stat Radiology 07/14/18 11:38 Ordered DUPLEX VASCUL US-1 LEG [US] Stat Ultrasound 07/14/18 11:38 Ordered Medical Decision Making - Medical Decision Making 07/14/18 12:03 Chief complaint: Right knee buckling for the past month now causing her to fall backwards today striking the back of her head and right shoulder Exam. Patient with right occipital hematoma tenderness over the right shoulder and right knee extending to right calf. Plan right lower extremity ultrasound to rule out DVT, x-ray of the right knee to evaluate hardware, head CT and cervical CT ordered 07/14/18 12:38 X-ray of the knee shows intact orthopedic hardware with no loosening seen the visualized structures appear intact with no fractures. There is no evidence of suprapatellar joint effusion. X-ray of the shoulder shows no acute fracture or evidence of glenohumeral joint dislocation. Patient awaiting results of CT 07/14/18 13:10 CT of the head shows soft tissue swelling over the right posterior high convexity. No evidence of acute pathology. Cervical x-ray shows satisfactory alignment with no gross fracture or subluxation seen. *DC/Admit/Observation/Transfer Diagnosis at time of Disposition: Closed head injury - Discharge Dispostion Disposition: HOME Condition at time of disposition: Good - Referrals Referrals: Carri De La Vega MD [Primary Care Provider] - - Patient Instructions Printed Discharge Instructions: DI for Closed Head Injury Additional Instructions: Apply ice to the affected areas to alleviate swelling and discomfort. You may take Motrin 600 mg for pain. Please follow-up with your orthopedist in regards to worsening discomfort and frequent buckling of your right knee - Post Discharge Activity
--- NOTE | 2018-07-14 12:37 | PDOC ---
*Physical Exam - Vital Signs Last Vital Signs Temp Pulse Resp BP Pulse Ox 98.5 F 84 16 158/84 100 07/14/18 11:16 07/14/18 11:16 07/14/18 11:16 07/14/18 11:16 07/14/18 11:16 Medical Decision Making - Medical Decision Making 07/14/18 12:37 Pt seen by Midlevel Provider under my direct supervision Pt interviewed and examined Ancillary studies reviewed I agree with plan as outlined by Midlevel Provider *DC/Admit/Observation/Transfer - Referrals Referrals: Carri De La Vega MD [Primary Care Provider] - - Patient Instructions - Post Discharge Activity
[2018-07-14] MEDS ORDERED: IBUPROFEN 600 MG TABLET (FP) PO ONE ×2 (13:15→13:20)
== END 2018-07-14 13:33 | disposition home or self-care (01) ==
LOC: JER 11:10
DX: S00.03XA Contusion of scalp, initial encounter (principal); M25.511 Pain in right shoulder; M25.561 Pain in right knee; W18.39XA Other fall on same level, initial encounter; Y93.89 Activity, other specified; Y92.480 Sidewalk as the place of occurrence of the external cause; Y99.8 Other external cause status; D64.9 Anemia, unspecified; I10 Essential (primary) hypertension; E11.9 Type 2 diabetes mellitus without complications; R26.89 Other abnormalities of gait and mobility; Z99.89 Dependence on other enabling machines and devices; Z96.651 Presence of right artificial knee joint
CPT/HCPCS: 70450-TC; 72125-TC; 73030-TC-RT-FY; 73562-TC-RT-FY; 93971-TC; 99282-25

== ENCOUNTER 2021-05-03 12:25 | Inpatient (IN) | payer OTHER ==
[2021-05-03] MEDS ORDERED: ONDANSETRON *ODT* 4 MG TABLET SL ONE (13:59)
[2021-05-03 14:10] LABS: CHLORIDE 106 mmol/L (98-107); SODIUM 141 mmol/L (136-145)
[2021-05-03 14:12] LABS: CALCIUM 9.5 mg/dL (8.5-10.1)
[2021-05-03 14:13] LABS: ALBUMIN 3.4 g/dl (3.4-5.0); ANION GAP 6 MMOL/L (8-16); CO2 29 mmol/L (21-32); GLUCOSE,RANDOM 126 mg/dL (74-106); MAGNESIUM 2.1 mg/dL (1.8-2.4)
[2021-05-03 14:16] LABS: SGOT/AST 38 U/L (15-37); SGPT/ALT 22 U/L (13-61)
[2021-05-03 14:17] LABS: BILIRUBIN,TOTAL 0.6 mg/dL (0.2-1)
[2021-05-03 14:19] LABS: ALK PHOS 77 U/L (45-117)
[2021-05-03] MEDS ORDERED: ONDANSETRON *ODT* 4 MG TABLET ONE (14:29)
[2021-05-03 14:39] LABS: BASO % 0.2 % (0-2.0); EOS % 2.6 % (0-4.5); HEMATOCRIT 38.1 % (32.4-45.2); HEMOGLOBIN 12.6 GM/dL (10.7-15.3); LYMPH % 23.9 % (8-40); MCH 30.7 pg (25.7-33.7); MCHC 33.1 g/dl (32.0-36.0); MEAN CELL VOLUME 92.8 fl (80-96); MEAN PLT VOLUME 8.1 fl (7.5-11.1); MONO % 6.4 % (3.8-10.2); NEUT % 66.9 % (42.8-82.8); PLATELET COUNT 240 10^3/uL (134-434); RBC 4.11 M/mm3 (3.60-5.2); RDW 14.8 % (11.6-15.6); WHITE BLOOD COUNT 6.4 K/mm3 (4.0-10.0)
[2021-05-03 15:24] LABS: CALCIUM 9.7 mg/dL (8.5-10.1)
[2021-05-03 15:25] LABS: ALBUMIN 3.6 g/dl (3.4-5.0); BLOOD UREA NITROGEN 20.6 mg/dL (7-18)
[2021-05-03 15:30] LABS: BILIRUBIN,TOTAL 0.5 mg/dL (0.2-1); TOT PROT 6.9 g/dl (6.4-8.2)
[2021-05-03] MEDS ORDERED: ACETAMINOPHEN 500 MG TABLET (FP) PO PRN (17:10)
[2021-05-03] MEDS: GABAPENTIN 300 MG CAPSULE PO SCH ×2 (18:54→22:04)
[2021-05-03 20:58] LABS: EPI CELLS 11 /uL (0-25.1); HYALINE CASTS 1 /uL (0-3.1); PH,URINE 6.5 (5.0-8.0); URINE APPEARANCE CLEAR; URINE BACTERIA 327 /uL (0-1359); URINE BILIRUBIN NEGATIVE (NEGATIVE); URINE COLOR YELLOW; URINE GLUCOSE (UA) NEGATIVE (NEGATIVE); URINE KETONE NEGATIVE (NEGATIVE); URINE LEUK ESTERASE TRACE (NEGATIVE); URINE NITRITE NEGATIVE (NEGATIVE); URINE PROTEIN NEGATIVE (NEGATIVE); URINE RBC 21 /uL (0-23.9); URINE UROBILINOGEN 0.2 mg/dL (0.2-1.0); URINE WBC 26 /uL (0-25.8)
[2021-05-03] MEDS ORDERED: ATORVASTATIN CA 10 MG TABLET (FP) ONE (21:51)
[2021-05-03] MEDS ORDERED: GABAPENTIN 100 MG CAPSULE ONE (21:51)
[2021-05-03] MEDS: ATORVASTATIN CA 10 MG TABLET (FP) PO SCH (23:45)
[2021-05-04] MEDS ORDERED: MELATONIN 1 MG TABLET PO ONE ×2 (02:08→23:10)
[2021-05-04 03:58] VITALS: BMI 31.7
[2021-05-04 06:47] LABS: HEMATOCRIT 35.4 % (32.4-45.2); HEMOGLOBIN 11.7 GM/dL (10.7-15.3); MCH 31.3 pg (25.7-33.7); MCHC 33.1 g/dl (32.0-36.0); MEAN CELL VOLUME 94.5 fl (80-96); MEAN PLT VOLUME 8.4 fl (7.5-11.1); PLATELET COUNT 198 10^3/uL (134-434); RBC 3.74 M/mm3 (3.60-5.2); RDW 14.9 % (11.6-15.6); WHITE BLOOD COUNT 6.8 K/mm3 (4.0-10.0)
[2021-05-04 06:57] LABS: BLOOD UREA NITROGEN 23.8 mg/dL (7-18); CALCIUM 9.1 mg/dL (8.5-10.1)
[2021-05-04 06:58] LABS: ALBUMIN 2.9 g/dl (3.4-5.0)
[2021-05-04 07:01] LABS: CREATININE 1.1 mg/dL (0.55-1.3)
[2021-05-04 07:02] LABS: BILIRUBIN,TOTAL 0.3 mg/dL (0.2-1); TOT PROT 5.9 g/dl (6.4-8.2)
[2021-05-04] MEDS: ASPIRIN 81 MG CHEWABLE TABLETS PO SCH (09:09)
[2021-05-04] MEDS: SENNOSIDES/DOCUSATE COMBO (SENNA PLUS) TABLET (UD) PO SCH (09:09)
[2021-05-04] MEDS: GABAPENTIN 300 MG CAPSULE PO SCH ×4 (09:09→21:38)
[2021-05-04] MEDS: PANTOPRAZOLE 40 MG TABLET PO SCH (17:50)
[2021-05-04] MEDS: ATORVASTATIN CA 10 MG TABLET (FP) PO SCH (21:38)
[2021-05-05] MEDS: PANTOPRAZOLE 40 MG TABLET PO SCH (09:15)
[2021-05-05] MEDS: ASPIRIN 81 MG CHEWABLE TABLETS PO SCH (09:15)
[2021-05-05] MEDS: SENNOSIDES/DOCUSATE COMBO (SENNA PLUS) TABLET (UD) PO SCH (09:15)
[2021-05-05] MEDS: GABAPENTIN 300 MG CAPSULE PO SCH ×4 (09:18→21:20)
[2021-05-05] MEDS ORDERED: OXYBUTYNIN CHLORIDE 5 MG TABLET PO SCH (15:45)
[2021-05-05] MEDS: SOLIFENACIN SUCCINATE 5 MG TAB PO SCH (17:37)
[2021-05-05] MEDS: ATORVASTATIN CA 10 MG TABLET (FP) PO SCH (21:20)
[2021-05-05] MEDS: MELATONIN 1 MG TABLET PO PRN (21:21)
[2021-05-06 07:37] LABS: BASO % 0.2 % (0-2.0); EOS % 3.9 % (0-4.5); HEMATOCRIT 36.2 % (32.4-45.2); LYMPH % 41.4 % (8-40); MCH 31.1 pg (25.7-33.7); MCHC 33.1 g/dl (32.0-36.0); MEAN CELL VOLUME 93.9 fl (80-96); MEAN PLT VOLUME 8.3 fl (7.5-11.1); MONO % 8.7 % (3.8-10.2); NEUT % 45.8 % (42.8-82.8); PLATELET COUNT 212 10^3/uL (134-434); RBC 3.86 M/mm3 (3.60-5.2); RDW 14.8 % (11.6-15.6)
[2021-05-06 08:23] LABS: CALCIUM 9.3 mg/dL (8.5-10.1)
[2021-05-06 08:24] LABS: BLOOD UREA NITROGEN 22.3 mg/dL (7-18); CREATININE 0.9 mg/dL (0.55-1.3)
[2021-05-06 08:25] LABS: BILIRUBIN,TOTAL 0.2 mg/dL (0.2-1)
[2021-05-06] MEDS ORDERED: REGADENOSON 0.4 MG/5 ML PRE-FILLED SYRINGE IVPUSH ONE ×2 (09:19→10:00)
[2021-05-06] MEDS ORDERED: PT OWN MED DRAWER 7, Y5N ONE (10:23)
[2021-05-06] MEDS: OMEGA-3 ACID ETHYL ESTERS (FATTY-ACIDS) 1 GM CAPSULE (FP) PO SCH (12:13)
[2021-05-06] MEDS: SENNOSIDES/DOCUSATE COMBO (SENNA PLUS) TABLET (UD) PO SCH (12:14)
[2021-05-06] MEDS: PANTOPRAZOLE 40 MG TABLET PO SCH (12:14)
[2021-05-06] MEDS: GABAPENTIN 300 MG CAPSULE PO SCH ×4 (12:14→21:54)
[2021-05-06] MEDS: ASPIRIN 81 MG CHEWABLE TABLETS PO SCH (12:15)
[2021-05-06] MEDS: VITAMIN B COMPLEX W/C COMBO TABLET (FP) PO SCH (12:15)
[2021-05-06] MEDS: SOLIFENACIN SUCCINATE 5 MG TAB PO SCH (12:16)
[2021-05-06] MEDS: ATORVASTATIN CA 10 MG TABLET (FP) PO SCH (21:21)
[2021-05-06] MEDS: MELATONIN 1 MG TABLET PO PRN (21:21)
[2021-05-07 07:43] LABS: HEMOGLOBIN 11.9 GM/dL (10.7-15.3); MCH 31.1 pg (25.7-33.7); MCHC 33.1 g/dl (32.0-36.0); MEAN PLT VOLUME 8.5 fl (7.5-11.1); PLATELET COUNT 199 10^3/uL (134-434); RBC 3.84 M/mm3 (3.60-5.2); RDW 14.4 % (11.6-15.6); WHITE BLOOD COUNT 5.1 K/mm3 (4.0-10.0)
[2021-05-07 08:12] LABS: CALCIUM 9.3 mg/dL (8.5-10.1)
[2021-05-07 08:13] LABS: ALBUMIN 2.9 g/dl (3.4-5.0); BLOOD UREA NITROGEN 19.9 mg/dL (7-18)
[2021-05-07 08:16] LABS: CREATININE 0.9 mg/dL (0.55-1.3)
[2021-05-07 08:17] LABS: BILIRUBIN,TOTAL 0.4 mg/dL (0.2-1)
[2021-05-07] MEDS ORDERED: PT OWN MED DRAWER 7, Y5N ONE (09:25)
[2021-05-07] MEDS: ASPIRIN 81 MG CHEWABLE TABLETS PO SCH (09:53)
[2021-05-07] MEDS: OMEGA-3 ACID ETHYL ESTERS (FATTY-ACIDS) 1 GM CAPSULE (FP) PO SCH (09:53)
[2021-05-07] MEDS: SOLIFENACIN SUCCINATE 5 MG TAB PO SCH (09:53)
[2021-05-07] MEDS: SENNOSIDES/DOCUSATE COMBO (SENNA PLUS) TABLET (UD) PO SCH (09:54)
[2021-05-07] MEDS: PANTOPRAZOLE 40 MG TABLET PO SCH (09:54)
[2021-05-07] MEDS: VITAMIN B COMPLEX W/C COMBO TABLET (FP) PO SCH (09:54)
[2021-05-07] MEDS: GABAPENTIN 300 MG CAPSULE PO SCH ×4 (09:54→20:59)
[2021-05-07] MEDS ORDERED: ALBUTEROL SO4 0.083% IH SOL 2.5 MG/3 ML VIAL.NEB. NEB PRN (11:09)
[2021-05-07] MEDS ORDERED: ALBUTEROL SO4 2.5/IPRATROPIUM 0.5 INH SOL 3 ML VIAL.NEB. NEB PRN (11:10)
[2021-05-07] MEDS: ATORVASTATIN CA 10 MG TABLET (FP) PO SCH (20:59)
[2021-05-07] MEDS: MELATONIN 1 MG TABLET PO PRN (20:59)
[2021-05-08 07:00] LABS: HEMATOCRIT 34.2 % (32.4-45.2); HEMOGLOBIN 11.3 GM/dL (10.7-15.3); MCH 31.1 pg (25.7-33.7); MCHC 33.1 g/dl (32.0-36.0); MEAN PLT VOLUME 8.5 fl (7.5-11.1); PLATELET COUNT 196 10^3/uL (134-434); RBC 3.64 M/mm3 (3.60-5.2); RDW 14.5 % (11.6-15.6); WHITE BLOOD COUNT 5.3 K/mm3 (4.0-10.0)
[2021-05-08 07:22] LABS: ALBUMIN 2.7 g/dl (3.4-5.0); CALCIUM 8.9 mg/dL (8.5-10.1)
[2021-05-08 07:25] LABS: CREATININE 0.9 mg/dL (0.55-1.3)
[2021-05-08 07:26] LABS: TOT PROT 5.6 g/dl (6.4-8.2)
[2021-05-08 07:27] LABS: BILIRUBIN,TOTAL 0.3 mg/dL (0.2-1)
[2021-05-08 07:46] VITALS: BP 105/58; PULSE 68; TEMP 97.9
[2021-05-08] MEDS ORDERED: PT OWN MED DRAWER 7, Y5N ONE (08:56)
[2021-05-08] MEDS: GABAPENTIN 300 MG CAPSULE PO SCH (09:12)
[2021-05-08] MEDS: VITAMIN B COMPLEX W/C COMBO TABLET (FP) PO SCH (09:12)
[2021-05-08] MEDS: OMEGA-3 ACID ETHYL ESTERS (FATTY-ACIDS) 1 GM CAPSULE (FP) PO SCH (09:12)
[2021-05-08] MEDS: SENNOSIDES/DOCUSATE COMBO (SENNA PLUS) TABLET (UD) PO SCH (09:12)
[2021-05-08] MEDS: SOLIFENACIN SUCCINATE 5 MG TAB PO SCH (09:12)
[2021-05-08] MEDS: ASPIRIN 81 MG CHEWABLE TABLETS PO SCH (09:12)
[2021-05-08] MEDS: PANTOPRAZOLE 40 MG TABLET PO SCH (09:12)
== END 2021-05-08 15:03 | disposition home or self-care (01) | DRG 191 ==
LOC: JER 12:25 → JERBED 13:44 → J4W 05-04 00:41
PROVIDERS: ADMIT Internal Medicine
DX: J44.1 Chronic obstructive pulmonary disease with (acute) exacerbation (principal); J45.901 Unspecified asthma with (acute) exacerbation; I50.32 Chronic diastolic (congestive) heart failure; I35.0 Nonrheumatic aortic (valve) stenosis; T56.0X1A Toxic effect of lead and its compounds, accidental (unintentional), initial encounter; Y92.89 Other specified places as the place of occurrence of the external cause; I10 Essential (primary) hypertension; E78.5 Hyperlipidemia, unspecified; M06.9 Rheumatoid arthritis, unspecified; F17.210 Nicotine dependence, cigarettes, uncomplicated
CPT/HCPCS: 36415; 71045-TC-FY; 78452-TC; 80053; 81003; 82550; 82962; 83735; 83880; 84439; 84443; 84484; 85025; 85027; 93005; 93010; 93017; 93306-TC; 99285-25; A9502; C9803; J2785; Q0162; U0003; U0005

== ENCOUNTER 2021-09-11 12:26 | Emergency (ER) | payer OTHER ==
[2021-09-11 12:34] VITALS: BP 146/81; PULSE 54; TEMP 97.8; BMI 32.7
== END 2021-09-11 14:53 | disposition home or self-care (01) ==
LOC: JER 12:26
DX: M79.652 Pain in left thigh (principal); M25.512 Pain in left shoulder; W01.0XXA Fall on same level from slipping, tripping and stumbling without subsequent striking against object, initial encounter
CPT/HCPCS: 73030-TC-LT-FY; 73060-TC-LT-FY; 73552-TC-LT-FY; 99285-25

== ENCOUNTER 2022-05-05 12:44 | Inpatient (IN) | payer OTHER ==
[2022-05-05] MEDS ORDERED: MAG HYDROX/AL HYDROX/SIMETH -MYLANTA- ORAL SUSPENSION PO ONE (14:27)
[2022-05-05] MEDS ORDERED: FAMOTIDINE 20 MG TABLET PO ONE (14:27)
[2022-05-05] MEDS ORDERED: MAG HYDROX/AL HYDROX/SIMETH 30 ML UNIT-DOSE CUP ONE (14:40)
[2022-05-05] MEDS ORDERED: FAMOTIDINE 20 MG TABLET ONE (14:40)
[2022-05-05 15:14] LABS: BASO % 0.3 % (0-2.0); EOS % 1.7 % (0-4.5); HEMATOCRIT 30.8 % (32.4-45.2); HEMOGLOBIN 9.9 GM/dL (10.7-15.3); LYMPH % 14.1 % (8-40); MCH 29.6 pg (25.7-33.7); MCHC 32.3 g/dl (32.0-36.0); MEAN CELL VOLUME 91.5 fl (80-96); MEAN PLT VOLUME 7.7 fl (7.5-11.1); MONO % 6.5 % (3.8-10.2); NEUT % 77.4 % (42.8-82.8); PLATELET COUNT 397 10^3/uL (134-434); RBC 3.36 M/mm3 (3.60-5.2); RDW 15.7 % (11.6-15.6); WHITE BLOOD COUNT 9.1 K/mm3 (4.0-10.0)
[2022-05-05 15:23] LABS: INR 1.14 (0.83-1.09); PROTHROMBIN TIME (PATIENT) 13.1 SEC (9.7-13.0)
[2022-05-05 15:25] LABS: ACTIVATED PTT 33.5 SECONDS (25.2-36.5)
[2022-05-05 15:35] LABS: ALBUMIN 2.9 g/dl (3.4-5.0); CALCIUM 9.6 mg/dL (8.5-10.1)
[2022-05-05 15:36] LABS: BLOOD UREA NITROGEN 22.2 mg/dL (7-18); MAGNESIUM 2.1 mg/dL (1.8-2.4)
[2022-05-05 15:40] LABS: BILIRUBIN,TOTAL 0.4 mg/dL (0.2-1); TOT PROT 6.2 g/dl (6.4-8.2)
[2022-05-05] MEDS ORDERED: ACETAMINOPHEN 325 MG TABLET (FP) PO PRN (18:25)
[2022-05-05] MEDS ORDERED: ATORVASTATIN CA 10 MG TABLET (FP) ONE (21:55)
[2022-05-05] MEDS ORDERED: GABAPENTIN 300 MG CAPSULE ONE (21:55)
[2022-05-05] MEDS ORDERED: PATIENT'S OWN MEDICATION (NON-FORMULARY) (Dorzolamide Hcl/Timolol Maleat [Cosopt Eye Drops OU SCH (22:00)
[2022-05-05] MEDS ORDERED: DORZOLAMIDE 2% HCL OPHTHALMIC SOLUTION 10 ML BOTTLE OU SCH (22:00)
[2022-05-05] MEDS ORDERED: TIMOLOL 0.5% OPHTHALMIC SOL 5 ML BOTTLE OU SCH (22:00)
[2022-05-05] MEDS: GABAPENTIN 300 MG CAPSULE PO SCH (22:02)
[2022-05-05] MEDS: BRIMONIDINE TARTRATE 0.2% OPHTHALMIC 5 ML BOTTLE OU SCH (22:02)
[2022-05-05] MEDS: ATORVASTATIN CA 10 MG TABLET (FP) PO SCH (22:02)
[2022-05-06 08:45] LABS: BASO % 0.3 % (0-2.0); EOS % 2.8 % (0-4.5); HEMOGLOBIN 9.4 GM/dL (10.7-15.3); LYMPH % 25.5 % (8-40); MCH 29.7 pg (25.7-33.7); MCHC 32.3 g/dl (32.0-36.0); MEAN PLT VOLUME 7.5 fl (7.5-11.1); MONO % 10.4 % (3.8-10.2); PLATELET COUNT 351 10^3/uL (134-434); RBC 3.15 M/mm3 (3.60-5.2); WHITE BLOOD COUNT 7.9 K/mm3 (4.0-10.0)
[2022-05-06] MEDS ORDERED: ASPIRIN 81 MG CHEWABLE TABLETS ONE (08:49)
[2022-05-06] MEDS ORDERED: GABAPENTIN 300 MG CAPSULE ONE (08:50)
[2022-05-06] MEDS ORDERED: ENOXAPARIN NA (PORCINE) 40 MG/0.4 ML DISP.SYRIN SQ ONE (08:51)
[2022-05-06] MEDS: ENOXAPARIN NA (PORCINE) 40 MG/0.4 ML DISP.SYRIN SQ SCH (09:02)
[2022-05-06] MEDS: ASPIRIN 81 MG CHEWABLE TABLETS PO SCH (09:02)
[2022-05-06] MEDS: GABAPENTIN 300 MG CAPSULE PO SCH ×2 (09:03→22:10)
[2022-05-06 09:10] LABS: ALBUMIN 2.6 g/dl (3.4-5.0); BLOOD UREA NITROGEN 18.5 mg/dL (7-18); CALCIUM 9.2 mg/dL (8.5-10.1); MAGNESIUM 1.9 mg/dL (1.8-2.4)
[2022-05-06 09:13] LABS: CREATININE 0.9 mg/dL (0.55-1.3); PHOSPHOROUS 2.6 mg/dL (2.5-4.9)
[2022-05-06 09:14] LABS: BILIRUBIN,TOTAL 0.3 mg/dL (0.2-1); TOT PROT 5.7 g/dl (6.4-8.2)
[2022-05-06] MEDS ORDERED: METHOCARBAMOL 500 MG TABLET PO PRN (09:45)
[2022-05-06] MEDS ORDERED: ALBUTEROL SO4 0.083% IH SOL 2.5 MG/3 ML VIAL.NEB. NEB PRN (09:45)
[2022-05-06] MEDS ORDERED: ACETAMINOPHEN 500 MG TABLET (FP) PO PRN (09:45)
[2022-05-06] MEDS ORDERED: PATIENT'S OWN MEDICATION (NON-FORMULARY) (Iron [Iron] 18 MG Tablet) PO SCH (10:00)
[2022-05-06] MEDS ORDERED: PATIENT'S OWN MEDICATION (NON-FORMULARY) (Dorzolamide Hcl/Timolol Maleat [Cosopt Eye Drops OP SCH (10:00)
[2022-05-06] MEDS: NORTRIPTYLINE HCL 10 MG CAPSULE PO SCH ×2 (11:30→22:10)
[2022-05-06] MEDS: SENNOSIDES/DOCUSATE COMBO (SENNA PLUS) TABLET (UD) PO SCH (11:30)
[2022-05-06] MEDS ORDERED: SENNOSIDES 8.6MG TABLET (FP) PO ONE (13:19)
[2022-05-06] MEDS: BUDESONIDE/FORMETEROL FUMARATE 160/4.5 mcg INHALER IH SCH ×2 (13:37→22:11)
[2022-05-06] MEDS ORDERED: FUROSEMIDE 40 MG/4 ML INJECTABLE VIAL ONE (13:54)
[2022-05-06] MEDS: FUROSEMIDE 40 MG/4 ML INJECTABLE VIAL IVPUSH SCH (13:57)
[2022-05-06] MEDS: ATORVASTATIN CA 10 MG TABLET (FP) PO SCH (22:10)
[2022-05-06] MEDS: TIMOLOL 0.5% OPHTHALMIC SOL 5 ML BOTTLE OU SCH (22:12)
[2022-05-06] MEDS: DORZOLAMIDE 2% HCL OPHTHALMIC SOLUTION 10 ML BOTTLE OU SCH (22:12)
[2022-05-06] MEDS: BRIMONIDINE TARTRATE 0.2% OPHTHALMIC 5 ML BOTTLE OU SCH (22:13)
[2022-05-07 03:21] VITALS: BMI 30.7
[2022-05-07 08:25] LABS: BASO % 0.3 % (0-2.0); EOS % 3.4 % (0-4.5); HEMATOCRIT 29.6 % (32.4-45.2); HEMOGLOBIN 9.5 GM/dL (10.7-15.3); LYMPH % 29.9 % (8-40); MCH 29.3 pg (25.7-33.7); MCHC 32.1 g/dl (32.0-36.0); MEAN CELL VOLUME 91.4 fl (80-96); MEAN PLT VOLUME 7.5 fl (7.5-11.1); MONO % 10.3 % (3.8-10.2); NEUT % 56.1 % (42.8-82.8); PLATELET COUNT 380 10^3/uL (134-434); RBC 3.24 M/mm3 (3.60-5.2); RDW 15.8 % (11.6-15.6); WHITE BLOOD COUNT 8.5 K/mm3 (4.0-10.0)
[2022-05-07 08:55] LABS: BLOOD UREA NITROGEN 16.8 mg/dL (7-18); CALCIUM 9.1 mg/dL (8.5-10.1); MAGNESIUM 1.6 mg/dL (1.8-2.4)
[2022-05-07 08:59] LABS: CREATININE 0.9 mg/dL (0.55-1.3)
[2022-05-07] MEDS: ENOXAPARIN NA (PORCINE) 40 MG/0.4 ML DISP.SYRIN SQ SCH (10:54)
[2022-05-07] MEDS: FUROSEMIDE 40 MG/4 ML INJECTABLE VIAL IVPUSH SCH (10:55)
[2022-05-07] MEDS: SENNOSIDES/DOCUSATE COMBO (SENNA PLUS) TABLET (UD) PO SCH (10:56)
[2022-05-07] MEDS: ASPIRIN 81 MG CHEWABLE TABLETS PO SCH (10:56)
[2022-05-07] MEDS: GABAPENTIN 300 MG CAPSULE PO SCH ×2 (10:56→22:39)
[2022-05-07] MEDS: NORTRIPTYLINE HCL 10 MG CAPSULE PO SCH ×2 (10:56→22:39)
[2022-05-07] MEDS: DORZOLAMIDE 2% HCL OPHTHALMIC SOLUTION 10 ML BOTTLE OU SCH ×2 (10:59→22:39)
[2022-05-07] MEDS: TIMOLOL 0.5% OPHTHALMIC SOL 5 ML BOTTLE OU SCH ×2 (11:01→22:38)
[2022-05-07] MEDS: BUDESONIDE/FORMETEROL FUMARATE 160/4.5 mcg INHALER IH SCH ×2 (11:01→22:39)
[2022-05-07] MEDS: BRIMONIDINE TARTRATE 0.2% OPHTHALMIC 5 ML BOTTLE OU SCH (22:39)
[2022-05-07] MEDS: ATORVASTATIN CA 10 MG TABLET (FP) PO SCH (22:39)
[2022-05-08 07:13] LABS: HEMATOCRIT 30.1 % (32.4-45.2); HEMOGLOBIN 9.8 GM/dL (10.7-15.3); MCH 29.5 pg (25.7-33.7); MCHC 32.5 g/dl (32.0-36.0); MEAN CELL VOLUME 90.7 fl (80-96); MEAN PLT VOLUME 7.2 fl (7.5-11.1); PLATELET COUNT 390 10^3/uL (134-434); RBC 3.32 M/mm3 (3.60-5.2); RDW 15.6 % (11.6-15.6); WHITE BLOOD COUNT 8.2 K/mm3 (4.0-10.0)
[2022-05-08 07:49] LABS: BLOOD UREA NITROGEN 18.2 mg/dL (7-18)
[2022-05-08 07:53] LABS: CREATININE 0.9 mg/dL (0.55-1.3)
[2022-05-08 09:03] LABS: ANISOCYTOSIS 0; MACROCYTOSIS 0
[2022-05-08] MEDS: SENNOSIDES/DOCUSATE COMBO (SENNA PLUS) TABLET (UD) PO SCH (09:51)
[2022-05-08] MEDS: FUROSEMIDE 40 MG/4 ML INJECTABLE VIAL IVPUSH SCH (09:52)
[2022-05-08] MEDS: NORTRIPTYLINE HCL 10 MG CAPSULE PO SCH ×2 (09:53→22:21)
[2022-05-08] MEDS: GABAPENTIN 300 MG CAPSULE PO SCH ×2 (09:53→22:19)
[2022-05-08] MEDS: ENOXAPARIN NA (PORCINE) 40 MG/0.4 ML DISP.SYRIN SQ SCH (09:53)
[2022-05-08] MEDS: TIMOLOL 0.5% OPHTHALMIC SOL 5 ML BOTTLE OU SCH ×2 (09:54→22:25)
[2022-05-08] MEDS: BUDESONIDE/FORMETEROL FUMARATE 160/4.5 mcg INHALER IH SCH ×2 (09:54→22:22)
[2022-05-08] MEDS: ASPIRIN 81 MG CHEWABLE TABLETS PO SCH (09:54)
[2022-05-08] MEDS: DORZOLAMIDE 2% HCL OPHTHALMIC SOLUTION 10 ML BOTTLE OU SCH ×2 (09:55→22:24)
[2022-05-08] MEDS ORDERED: ALBUTEROL SO4 0.083% IH SOL 2.5 MG/3 ML VIAL.NEB. NEB PRN (21:23)
[2022-05-08] MEDS ORDERED: BRIMONIDINE TARTRATE 0.2% OPHTHALMIC 5 ML BOTTLE OU SCH (22:00)
[2022-05-08] MEDS: ATORVASTATIN CA 10 MG TABLET (FP) PO SCH (22:18)
[2022-05-09] MEDS: ASPIRIN 81 MG CHEWABLE TABLETS PO SCH (09:09)
[2022-05-09] MEDS: GABAPENTIN 300 MG CAPSULE PO SCH ×2 (09:09→22:22)
[2022-05-09] MEDS: METHOCARBAMOL 500 MG TABLET PO PRN (09:09)
[2022-05-09] MEDS: SENNOSIDES/DOCUSATE COMBO (SENNA PLUS) TABLET (UD) PO SCH (09:10)
[2022-05-09] MEDS: NORTRIPTYLINE HCL 10 MG CAPSULE PO SCH ×2 (09:10→22:29)
[2022-05-09] MEDS: ENOXAPARIN NA (PORCINE) 40 MG/0.4 ML DISP.SYRIN SQ SCH (09:10)
[2022-05-09] MEDS: BUDESONIDE/FORMETEROL FUMARATE 160/4.5 mcg INHALER IH SCH ×2 (09:13→22:29)
[2022-05-09] MEDS: DORZOLAMIDE 2% HCL OPHTHALMIC SOLUTION 10 ML BOTTLE OU SCH ×2 (09:17→22:27)
[2022-05-09] MEDS: TIMOLOL 0.5% OPHTHALMIC SOL 5 ML BOTTLE OU SCH ×2 (09:19→22:32)
[2022-05-09 09:37] LABS: BASO % 0.5 % (0-2.0); EOS % 3.8 % (0-4.5); HEMOGLOBIN 9.7 GM/dL (10.7-15.3); LYMPH % 20.9 % (8-40); MCH 29.2 pg (25.7-33.7); MCHC 32.3 g/dl (32.0-36.0); MEAN CELL VOLUME 90.4 fl (80-96); MEAN PLT VOLUME 7.3 fl (7.5-11.1); MONO % 8.4 % (3.8-10.2); NEUT % 66.4 % (42.8-82.8); PLATELET COUNT 446 10^3/uL (134-434); RBC 3.32 M/mm3 (3.60-5.2); RDW 15.5 % (11.6-15.6); WHITE BLOOD COUNT 9.4 K/mm3 (4.0-10.0)
[2022-05-09] MEDS ORDERED: PATIENT'S OWN MEDICATION (NON-FORMULARY) (Iron [Iron] 18 MG) PO SCH (10:00)
[2022-05-09] MEDS ORDERED: FUROSEMIDE 40 MG/4 ML INJECTABLE VIAL IVPUSH SCH (10:00)
[2022-05-09 10:03] LABS: CALCIUM 9.5 mg/dL (8.5-10.1)
[2022-05-09 10:04] LABS: ALBUMIN 2.6 g/dl (3.4-5.0); BLOOD UREA NITROGEN 18.8 mg/dL (7-18); MAGNESIUM 1.6 mg/dL (1.8-2.4)
[2022-05-09 10:07] LABS: CREATININE 0.9 mg/dL (0.55-1.3)
[2022-05-09 10:08] LABS: BILIRUBIN,TOTAL 0.4 mg/dL (0.2-1); TOT PROT 5.9 g/dl (6.4-8.2)
[2022-05-09] MEDS: BRIMONIDINE TARTRATE 0.2% OPHTHALMIC 5 ML BOTTLE OU SCH ×2 (10:12→22:28)
[2022-05-09 10:16] LABS: ANISOCYTOSIS 2+; MACROCYTOSIS 0
[2022-05-09] MEDS: ATORVASTATIN CA 10 MG TABLET (FP) PO SCH (22:23)
[2022-05-09] MEDS: ACETAMINOPHEN 500 MG TABLET (FP) PO PRN (22:40)
[2022-05-10] MEDS: ASPIRIN 81 MG CHEWABLE TABLETS PO SCH (09:04)
[2022-05-10] MEDS: SENNOSIDES/DOCUSATE COMBO (SENNA PLUS) TABLET (UD) PO SCH (09:05)
[2022-05-10] MEDS: ENOXAPARIN NA (PORCINE) 40 MG/0.4 ML DISP.SYRIN SQ SCH (09:05)
[2022-05-10] MEDS: GABAPENTIN 300 MG CAPSULE PO SCH ×2 (09:05→22:51)
[2022-05-10] MEDS: FUROSEMIDE 20 MG TABLET (FP) PO SCH (09:05)
[2022-05-10] MEDS: NORTRIPTYLINE HCL 10 MG CAPSULE PO SCH ×2 (09:05→22:51)
[2022-05-10] MEDS: METHOCARBAMOL 500 MG TABLET PO PRN ×2 (09:07→20:39)
[2022-05-10] MEDS: BUDESONIDE/FORMETEROL FUMARATE 160/4.5 mcg INHALER IH SCH ×2 (09:09→22:54)
[2022-05-10] MEDS: BRIMONIDINE TARTRATE 0.2% OPHTHALMIC 5 ML BOTTLE OU SCH ×2 (09:09→22:52)
[2022-05-10] MEDS: TIMOLOL 0.5% OPHTHALMIC SOL 5 ML BOTTLE OU SCH ×2 (09:10→22:52)
[2022-05-10] MEDS: DORZOLAMIDE 2% HCL OPHTHALMIC SOLUTION 10 ML BOTTLE OU SCH ×2 (09:10→22:55)
[2022-05-10 10:39] LABS: HEMATOCRIT 27.6 % (32.4-45.2); HEMOGLOBIN 9.1 GM/dL (10.7-15.3); MCH 29.7 pg (25.7-33.7); MCHC 32.8 g/dl (32.0-36.0); MEAN CELL VOLUME 90.4 fl (80-96); MEAN PLT VOLUME 7.3 fl (7.5-11.1); PLATELET COUNT 387 10^3/uL (134-434); RBC 3.05 M/mm3 (3.60-5.2); RDW 15.3 % (11.6-15.6); WHITE BLOOD COUNT 7.1 K/mm3 (4.0-10.0)
[2022-05-10 11:00] LABS: CALCIUM 8.8 mg/dL (8.5-10.1)
[2022-05-10 11:01] LABS: ALBUMIN 2.4 g/dl (3.4-5.0); BLOOD UREA NITROGEN 22.4 mg/dL (7-18); MAGNESIUM 1.5 mg/dL (1.8-2.4)
[2022-05-10 11:04] LABS: CREATININE 0.9 mg/dL (0.55-1.3)
[2022-05-10 11:05] LABS: BILIRUBIN,TOTAL 0.2 mg/dL (0.2-1); TOT PROT 5.7 g/dl (6.4-8.2)
[2022-05-10 11:10] LABS: ANISOCYTOSIS 1+; MACROCYTOSIS 0
[2022-05-10] MEDS: ACETAMINOPHEN 500 MG TABLET (FP) PO PRN (20:27)
[2022-05-10] MEDS: ATORVASTATIN CA 10 MG TABLET (FP) PO SCH (22:51)
[2022-05-11] MEDS: ACETAMINOPHEN 500 MG TABLET (FP) PO PRN (01:33)
[2022-05-11 09:17] VITALS: RESP 20
[2022-05-11] MEDS: ASPIRIN 81 MG CHEWABLE TABLETS PO SCH (10:11)
[2022-05-11] MEDS: NORTRIPTYLINE HCL 10 MG CAPSULE PO SCH (10:11)
[2022-05-11] MEDS: SENNOSIDES/DOCUSATE COMBO (SENNA PLUS) TABLET (UD) PO SCH (10:11)
[2022-05-11] MEDS: GABAPENTIN 300 MG CAPSULE PO SCH (10:11)
[2022-05-11] MEDS: ENOXAPARIN NA (PORCINE) 40 MG/0.4 ML DISP.SYRIN SQ SCH (10:11)
[2022-05-11] MEDS: FUROSEMIDE 20 MG TABLET (FP) PO SCH (10:12)
[2022-05-11] MEDS: BUDESONIDE/FORMETEROL FUMARATE 160/4.5 mcg INHALER IH SCH (10:13)
[2022-05-11] MEDS: BRIMONIDINE TARTRATE 0.2% OPHTHALMIC 5 ML BOTTLE OU SCH (10:14)
[2022-05-11] MEDS: TIMOLOL 0.5% OPHTHALMIC SOL 5 ML BOTTLE OU SCH (10:14)
[2022-05-11] MEDS: DORZOLAMIDE 2% HCL OPHTHALMIC SOLUTION 10 ML BOTTLE OU SCH (10:14)
[2022-05-11 11:30] LABS: ALBUMIN 2.8 g/dl (3.4-5.0); BLOOD UREA NITROGEN 24.7 mg/dL (7-18); CALCIUM 9.7 mg/dL (8.5-10.1)
[2022-05-11 11:31] LABS: MAGNESIUM 1.7 mg/dL (1.8-2.4)
[2022-05-11 11:33] LABS: CREATININE 0.9 mg/dL (0.55-1.3)
[2022-05-11 11:34] LABS: BILIRUBIN,TOTAL 0.4 mg/dL (0.2-1); TOT PROT 6.5 g/dl (6.4-8.2)
[2022-05-11 16:25] VITALS: BP 119/65; PULSE 88; TEMP 98.2
== END 2022-05-11 17:29 | disposition home health service (06) | DRG 291 ==
LOC: JER 12:44 → JERBED 17:28 → J4W 05-06 21:20 → J8W 05-08 21:16
PROVIDERS: ADMIT Internal Medicine; ATTEND Internal Medicine
DX: I11.0 Hypertensive heart disease with heart failure (principal); I50.33 Acute on chronic diastolic (congestive) heart failure; J44.9 Chronic obstructive pulmonary disease, unspecified; I35.0 Nonrheumatic aortic (valve) stenosis; M06.9 Rheumatoid arthritis, unspecified; E11.9 Type 2 diabetes mellitus without complications; E78.5 Hyperlipidemia, unspecified; H40.9 Unspecified glaucoma; D64.9 Anemia, unspecified
CPT/HCPCS: 0241U-QW; 36415; 71045-TC-FY; 76700-TC; 80048; 80053; 83735; 83880; 84100; 84443; 84484; 85025; 85610; 85730; 93005; 93010; 94761; 97116-GP; 97161-GP; 99285-25